=== PATIENT | female | born 1950 | race Caucasian/White ===

== ENCOUNTER 2018-08-28 11:15 | Outpatient (RCR) | payer MEDICARE, OTHER, SELFPAY ==
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
== END 2018-12-26 14:11 ==
LOC: PHYS 11:15
PROVIDERS: Family Provider Family Medicine; PCP Family Medicine; Referring Provider Obstetrics & Gynecology; Visit Provider Obstetrics & Gynecology
DX: N39.46 Mixed incontinence (principal)
CPT/HCPCS: 97035; 97110; 97140; 97161

== ENCOUNTER 2018-12-31 06:14 | Day surgery (SDC) | payer MEDICARE, OTHER, SELFPAY ==
[2018-12-17 14:45] VITALS: BMI 33.4
[2018-12-31] VITALS (8 sets, daily range): BP systolic 136–183; BP diastolic 51–86; PULSE 76–90; RESP 3–20; TEMP 35.9–36.8; O2SAT 11–97; BMI 33.4
[2018-12-31] MEDS: LACTATED RINGERS 1,000 ML 42 ML IV ×2 (07:25→08:56)
[2018-12-31] MEDS: CEFAZOLIN 2 GM/100 ML FROZ.PIGGY IV (08:08)
--- NOTE | 2018-12-31 08:28 | PM.PREOP ---
Pre-operative Note Interval Note History & Physical reviewed/Exam performed by Physician: Yes Changes to H&P: No
--- NOTE | 2018-12-31 08:29 | PM.HP.1 ---
History of Present Illness Date Patient Seen: 12/31/18 Time Patient Seen: 08:29 Chief complaint: TVT w/ cystoscopy; 21475 Narrative: Patient is a 68-year-old with stress urinary incontinence who is here for a TVT with cystoscopy Patient History Family & Social History Social History: household members spouse Tobacco & Substance use: Smoking Status Never smoker Meds Home Medications Medication Instructions Recorded Confirmed Type aspirin 81 mg tablet,delayed 81 mg PO DAILY 05/23/18 12/31/18 History release atorvastatin 40 mg tablet 40 mg PO DAILY 05/23/18 12/31/18 History nortriptyline 10 mg capsule 10 mg PO BEDTIME 05/23/18 12/31/18 History metformin ER 500 mg 500 mg PO BID #0 tab 10/30/18 12/31/18 History tablet,extended release 24hr losartan 50 mg tablet 50 mg PO DAILY 12/19/18 12/31/18 History Allergies Allergy/AdvReac Type Severity Reaction Status Date / Time Latex, Natural Rubber Allergy Unknown Verified 12/31/18 07:40 [LATEX, NATURAL RUBBER] metronidazole [METRONIDAZOLE] Allergy Unknown Verified 12/31/18 07:40 oxycodone [From PERCOCET] Allergy Unknown Verified 12/31/18 07:40 Penicillins [PENICILLINS] Allergy Unknown Verified 12/31/18 07:40 pregabalin [From LYRICA] Allergy Unknown Verified 12/31/18 07:40 pumpkin seeds Allergy Unknown Uncoded 12/31/18 07:40 Exam Vital Signs (past 8 hours): - 12/31/18 07:26 Temperature 96.7 F L Pulse Rate 83 Respiratory Rate 16 Blood Pressure 183/86 H Pulse Oximetry 97 Oxygen Delivery Method Room Air Narrative Exam Narrative: HEENT: No thyromegaly, no anterior cervical or supraclavicular lymphadenopathy. Lungs:Clear to auscultation bilaterally, no wheezes. Cardiovascular: Regular rate and rhythm, no murmurs, rubs, or gallops. Abdomen: Well-healed scars. No hepatosplenomegaly. No masses palpable. External genitalia: Normal Vagina: Normal Cervix: Normal Bimanual exam: 6 Week size uterus. Mobile. Rectal: No masses. Assessment & Plan (1) KELLEN (stress urinary incontinence, female): Current visit: Yes Status: Acute Plan: Assessment/Plan Narrative: Assessment: 68-year-old with stress urinary incontinence Plan: TVT with cystoscopy The risks, benefits, and alternatives to the procedure were explained to the patient. The risks including bleeding, infection, injury to the bladder, urethra or ureters. She understands these risks and agrees to proceed. A full PAR-Q was held and consent form was signed.
--- NOTE | 2018-12-31 08:32 | SUR.OPER ---
Lithotomy on padded OR bed, head on pillow, arms secured on padded arm boards at <90 degrees abduction. Legs secured in padded yellow fins stirrups.
[2018-12-31] MEDS: BUPIVACAINE 0.25% W/ EPI VIAL 50 ML INJ (08:49)
[2018-12-31] MEDS: INSULIN REGULAR 100 UNIT/ML 3 ML VIAL SUBCUT (09:44)
--- NOTE | 2018-12-31 09:59 | SUR.PHASEI ---
0952 late entry - O2 reduced to 2LNP. Resting comfortable, denies pain/nausea. VSS 0959 Remains stable, taking ice chips, tolerating well. Resp unlabored, skin warm and dry. Verbal responses appropriate.
--- NOTE | 2018-12-31 10:11 | SUR.PHASEI ---
1006 To OPD, report to Myke Leija RN. Dentures to OPD w/patient.
--- NOTE | 2018-12-31 15:36 | PM.GYNOP.1 ---
Operative Date/Time/Diagnoses Date of procedure: 12/31/18 Time of procedure: 09:30 Pre-op diagnosis: Stress urinary incontinence Increased urethrovesical angle on Valsalva Post-op diagnosis: same Procedure: Procedures Operation Date: 12/31/18 07:45 Actual Procedures Side Surgeon p Tensionless Vaginal Tape w/cystoscopy Alicia Nova MD Indications: Stress Urinary incontinence Increased urethrovesical angle with Valsalva Surgeon: Aliica Nova Manager Portable: Scottie Villavicencio Anesthesia Type: General Operative Notes Findings: Increased urethrovesical angle on Valsalva No injury to the bladder Closure Type: not applicable Specimen(s): none Applied: catheter Estimated blood loss (mL): 10 Blood products transfused: none Procedure in detail: The patient was taken to the operating room where she was placed in the dorsal supine position. After adequate general endotracheal anesthesia was achieved, she was placed in the dorsal lithotomy position, and prepped and draped in the usual sterile fashion. A time-out was performed. 50 cc 0.5% Marcaine with epinephrine were diluted with 50 cc of sterile water. With the patient placed with her thighs parallel to the floor, using an 18 gauge spinal needle, 100 cc of a dilute local was injected behind the pubic symphysis into the space of Retzius. The midline was marked as well as 2 cm lateral to the midline on each side with a marking pen. Attention was then turned to the vagina where a weighted speculum was placed into the vagina. Allis clamps were placed lateral to the midline on the mucosa of the anterior abdominal wall approximately 1 1/2 cm away from the urethral meatus. 5 cc of 0.25% Marcaine with epinephrine were injected submucosally. A 1 cm incision was made in the midline. This was dissected out laterally with the Metzenbaum scissors. The bladder was emptied and a latex-free rigid catheter was placed into the bladder and the balloon was filled with 5 cc of air. With the bladder neck retracted away from the patient's right side 10 cc 0.25% Marcaine with epinephrine was injected along the projected path of the TVT. This was repeated on the patient's left side with the bladder neck retracted away from the patient's left side. The path of the TVT was slightly dissected using the Hegar dilator up to the # 6. This was repeated on the patient's right side with the bladder neck retracted away from the patient's right side. A hemostat was placed in the midline on the overlapping plastic sheath. The TVT was directed towards the patient's right shoulder with the bladder neck retracted away from the patient's right side. After perforating the urogenital diaphragm the TVT was brought up behind the pubic symphysis and out on the right side of the midline approximately 2 cm away from the midline. Using the # 15 blade, a 3 mm incision was made and the TVT introducer was brought up through the skin and grasped with a Ruddy. All of this was repeated on the patient's left side with the bladder neck retracted away from the patient's left side. The rigid portion of the catheter was removed from the bladder. The bladder was filled with 240 cc of sterile water. A cystoscopy was performed and a bubble was seen at the dome of the bladder. The TVT was not in the bladder at any site. Cystoscope was removed from the bladder. The TVT was pulled to within 2-3 mm of the urethral meatus. The patient was made to cough and there was no leakage of urine. The hemostat was removed from the midline of the overlapping plastic sheath on the TVT. Without creating any more tension on the TVT, the plastic sheath was removed. The TVT was cut below the level of the skin. The vaginal mucosa was closed with 3 O Vicryl in a running interlocking fashion. Surgical glue was used on the suprapubic incisions. There was no bleeding noted vaginally. A catheter was placed in approximately 100 cc of the sterile water was removed from the bladder. Sponge, lap, and instrument counts were correct x2. The patient tolerated the procedure well, and was taken to PACU in stable condition. Complications: none Post-operative Condition: stable Disposition: PACU Plan for aftercare: Home after recovery
== END 2018-12-31 10:55 | disposition home or self-care (01) ==
PROVIDERS: Family Provider Family Medicine; PCP Family Medicine; Visit Provider Obstetrics & Gynecology
PROC: 0TSD0ZZ Reposition Urethra, Open Approach (ICD-10-PCS; CPT 57288; principal; 2018-12-31 07:45)
DX: N39.3 Stress incontinence (female) (male) (principal); G47.33 Obstructive sleep apnea (adult) (pediatric); E11.9 Type 2 diabetes mellitus without complications; Z79.84 Long term (current) use of oral hypoglycemic drugs
CPT/HCPCS: 57288; C1771; J0330; J0690; J1100; J1885; J2704

== ENCOUNTER 2019-01-01 11:47 | Emergency (ER) | payer MEDICARE, OTHER, SELFPAY ==
[2019-01-01 11:50] VITALS: BP 188/74; PULSE 80; RESP 14; TEMP 36.5; O2SAT 98
--- NOTE | 2019-01-01 12:05 | ED.CHESTPAIN ---
HPI - Chest Pain <Aleyda Pedroza PA-C - Last Filed: 01/01/19 20:08> General Chief Complaint: Chest Pain Stated Complaint: CHEST SOB Time Seen by Provider: 01/01/19 12:03 Source: patient Mode of arrival: ambulatory Limitations: no limitations History of Present Illness HPI narrative: This 68-year-old female comes to ED today secondary to chest pain that started this morning. She states it has been present consistently since early this morning, feels it mainly when she breathes in but also hurts with trying to get up and out of a chair. She states that she does not have the pain when she exhales. She does not feel short of breath. She has not had fever, any recent cough or upper respiratory symptoms. She does not have any nausea or vomiting. She does not have dizziness or palpitations. She does not have any new pain or swelling in her extremities. She did have a bladder suspension yesterday and states that she has some soreness from that, and also was told after intubation that she would have some sore throat and pain in her shoulder which has been unchanged since surgery. She states that she also feels the pain in the middle of her back. Pain stays in the midline, does not radiate into extremities or neck. She does not have any history of blood clots. Related Data Home Medications Medication Instructions Recorded Confirmed aspirin 81 mg tablet,delayed 81 mg PO DAILY 05/23/18 01/01/19 release atorvastatin 40 mg tablet 40 mg PO DAILY 05/23/18 01/01/19 losartan 50 mg tablet 50 mg PO DAILY 12/19/18 01/01/19 metformin 500 mg PO BID 01/01/19 01/01/19 sennosides-docusate sodium 1 tab PO BID 01/01/19 01/01/19 [Senna-S] Previous Rx's Medication Instructions Recorded tramadol 50 mg PO Q4-6H PRN #10 tab 01/01/19 Allergies Allergy/AdvReac Type Severity Reaction Status Date / Time Latex, Natural Rubber Allergy Unknown Verified 12/31/18 07:40 [LATEX, NATURAL RUBBER] metronidazole [METRONIDAZOLE] Allergy Unknown Verified 12/31/18 07:40 oxycodone [From PERCOCET] Allergy Unknown Verified 12/31/18 07:40 Penicillins [PENICILLINS] Allergy Unknown Verified 12/31/18 07:40 pregabalin [From LYRICA] Allergy Unknown Verified 12/31/18 07:40 pumpkin seeds Allergy Unknown Uncoded 12/31/18 07:40 Review of Systems <Aleyda Pedroza PA-C - Last Filed: 01/01/19 20:08> Review of Systems ROS Unobtainable: All systems reviewed & are unremarkable except as noted in HPI and below PFSH <Aleyda Pedroza PA-C - Last Filed: 01/01/19 20:08> Medical History Diabetes (Acute) GERD (gastroesophageal reflux disease) (Acute) HTN (hypertension) (Acute) Hyperlipidemia (Acute) Kidney stone on right side (Acute) Overactive bladder (Acute) H/O: hysterectomy (Resolved) Surgical History Hx of cholecystectomy (Acute) History of bladder suspension procedure (Resolved) History of partial knee replacement (Resolved) S/P cholecystectomy (Resolved) Status post hysterectomy (Resolved) Status post surgery (Resolved) Family History Other Family history non-contributory Social History household members: spouse Smoking Status: Never smoker Social History household members: spouse Smoking Status: Never smoker Exam <Aleyda Pedroza PA-C - Last Filed: 01/01/19 20:08> Narrative Exam Narrative: GENERAL APPEARANCE: Patient sitting comfortably, in no distress. NECK/THYROID: Neck supple, no JVD. LUNGS: soft generalized expiratory rhonchi, lungs clear with inspiration CHEST: Midsternal tenderness to palpation HEART: Regular rate and rhythm without murmur, normal S1, S2, no S3 or S4. ABDOMEN: Soft, NT, ND, + BS x 4 quadrants EXTREMITIES: No cyanosis or edema. No calf tenderness NEUROLOGIC: Alert and oriented, normal speech, and coordination. DERMATOLOGIC: No exanthem MUSCULOSKELETAL: No thoracic or lumbar tenderness to palpation Initial Vital Signs Initial Vital Signs: Vital Signs Temperature 97.7 F 01/01/19 11:50 Pulse Rate 80 01/01/19 11:50 Respiratory Rate 14 01/01/19 11:50 Blood Pressure 188/74 H 01/01/19 11:50 Pulse Oximetry 98 01/01/19 11:50 <John Sutton DO - Last Filed: 01/08/19 07:37> Initial Vital Signs Initial Vital Signs: Vital Signs Temperature 97.7 F 01/01/19 11:50 Pulse Rate 80 01/01/19 11:50 Respiratory Rate 14 01/01/19 11:50 Blood Pressure 188/74 H 01/01/19 11:50 Pulse Oximetry 98 01/01/19 11:50 Scores <Aleyda Pedroza PA-C - Last Filed: 01/01/19 20:08> PERC Score Age greater than or equal to 50 years: Yes Heart rate greater than or equal to 100 bpm: No Room Air O2 Sat less than 95%: Yes Unilateral leg swelling: No Recent trauma or surgery: Yes Hemoptysis: No Prior PE or DVT: No Hormone Use: No Total PERC Score: 3 Course <NIELS Hogan Last Filed: 01/01/19 20:08> Additional Information: The patient is feeling significantly improved after tramadol/acetaminophen combination, which she stated she had taken previously but stopped due to use of nortriptyline. She states that she does not need the nortriptyline daily. She can only take the hydrocodone 1/2 tab at a time due to GI side effects. She will change to tramadol, continue pillow hugging technique every few hours, which also helped considerably. Given incentive spirometer and training by RT. Follow up with her PCP is scheduled tomorrow. Reviewed elevated white count but no clear evidence of infection and this may just be due to her postoperative state, but does need follow-up. Orders Ordered: Discontinued Medications Acetaminophen (Tylenol) 650 mg PO NOW ONE Stop: 01/01/19 12:21 Last Admin: 01/01/19 12:32 Dose: 650 mg Albuterol (Ventolin) 2.5 mg INH NOW ONE Stop: 01/01/19 13:02 Last Admin: 01/01/19 13:17 Dose: 2.5 mg Sodium Chloride (Normal Saline 0.9%) 1,000 mls @ 1,000 mls/hr IV BOLUS ONE Stop: 01/01/19 13:19 Last Infusion: 01/01/19 13:47 Dose: 0 mls/hr Admin: 01/01/19 12:32 Dose: 1,000 mls/hr Tramadol HCl (Ultram) 50 mg PO NOW ONE Stop: 01/01/19 12:21 Last Admin: 01/01/19 12:32 Dose: 50 mg Vital Signs - 8 hr 01/01/19 13:33 01/01/19 14:11 Pulse Rate 84 72 Respiratory Rate 19 Blood Pressure [Left Arm] 178/82 H Pulse Oximetry 98 93 <John Sutton DO - Last Filed: 01/08/19 07:37> Orders Ordered: Discontinued Medications Acetaminophen (Tylenol) 650 mg PO NOW ONE Stop: 01/01/19 12:21 Last Admin: 01/01/19 12:32 Dose: 650 mg Albuterol (Ventolin) 2.5 mg INH NOW ONE Stop: 01/01/19 13:02 Last Admin: 01/01/19 13:17 Dose: 2.5 mg Sodium Chloride (Normal Saline 0.9%) 1,000 mls @ 1,000 mls/hr IV BOLUS ONE Stop: 01/01/19 13:19 Last Infusion: 01/01/19 13:47 Dose: 0 mls/hr Admin: 01/01/19 12:32 Dose: 1,000 mls/hr Tramadol HCl (Ultram) 50 mg PO NOW ONE Stop: 01/01/19 12:21 Last Admin: 01/01/19 12:32 Dose: 50 mg Vital Signs - 8 hr 01/01/19 13:33 01/01/19 14:11 Pulse Rate 84 72 Respiratory Rate 19 Blood Pressure [Left Arm] 178/82 H Pulse Oximetry 98 93 MDM - Chest Pain <Aleyda Pedroza PA-C - Last Filed: 01/01/19 20:08> Lab Data Attestation: I reviewed the patient's lab results. Result diagrams: 01/01/19 12:05 01/01/19 12:05 Lab Results 01/01/19 01/01/19 01/01/19 Range/Units 11:47 12:05 12:05 WBC 19.3 H (4.5-11.0) X10^3/uL RBC 4.50 (4.0-5.2) X10^6/uL Hgb 12.6 (12.0-16.0) g/dL Hct 38.1 (36-46) % MCV 84.7 (80-100) fL MCH 28.1 (26-34) PG MCHC 33.2 (30-36) % RDW 14.0 (11.6-14.8) % Plt Count 410 H (150-400) X10^3/uL Neut % (Auto) 74.1 (50-75) % Lymph % (Auto) 19.6 L (25-40) % Bland % (Auto) 4.7 (3-14) % Eos % (Auto) 0.9 L (2-4) % Baso % (Auto) 0.7 (0-2) % Neut # (Auto) 05157 H (0762-7845) /uL Lymph # (Auto) 3800 (4017-5025) /uL Bland # (Auto) 900 (0-900) /uL Eos # (Auto) 200 (0-450) /uL Baso # (Auto) 100 (0-100) /uL D-Dimer 274 H (<230) ng/mL Sodium (137-145) mmol/L Potassium (3.4-5.1) mmol/L Chloride (98-107) mmol/L Carbon Dioxide (22-32) mmol/L BUN (7-17) mg/dL Creatinine (0.52-1.04) mg/dL Estimated GFR (>60) mL/min BUN/Creatinine Ratio (6-22) Glucose (80-110) mg/dL Calcium (8.4-10.2) mg/dL Total Bilirubin (0.2-1.3) mg/dL AST (14-36) IU/L ALT (9-52) IU/L Alkaline Phosphatase (38-126) U/L Total Creatine Kinase (30-135) U/L CK-MB (CK-2) CK-MB (CK-2) Rel Index Troponin I (0.01-0.034) ng/mL B-Natriuretic Peptide 142 H (<100) Total Protein (6.3-8.2) g/dL Albumin (3.5-5.0) g/dL Globulin (1.7-4.1) g/dL Albumin/Globulin Ratio (1.0-2.8) Lipase (23-300) U/L 02/05/19 Range/Units 12:05 WBC (4.5-11.0) X10^3/uL RBC (4.0-5.2) X10^6/uL Hgb (12.0-16.0) g/dL Hct (36-46) % MCV (80-100) fL MCH (26-34) PG MCHC (30-36) % RDW (11.6-14.8) % Plt Count (150-400) X10^3/uL Neut % (Auto) (50-75) % Lymph % (Auto) (25-40) % Bland % (Auto) (3-14) % Eos % (Auto) (2-4) % Baso % (Auto) (0-2) % Neut # (Auto) (1879-4774) /uL Lymph # (Auto) (4945-7051) /uL Bland # (Auto) (0-900) /uL Eos # (Auto) (0-450) /uL Baso # (Auto) (0-100) /uL D-Dimer (<230) ng/mL Sodium 140 (137-145) mmol/L Potassium 3.3 L (3.4-5.1) mmol/L Chloride 104 (98-107) mmol/L Carbon Dioxide 27 (22-32) mmol/L BUN 17 (7-17) mg/dL Creatinine 0.70 (0.52-1.04) mg/dL Estimated GFR > 60.0 (>60) mL/min BUN/Creatinine Ratio 24.3 H (6-22) Glucose 157 H (80-110) mg/dL Calcium 9.6 (8.4-10.2) mg/dL Total Bilirubin 0.3 (0.2-1.3) mg/dL AST 18 (14-36) IU/L ALT 22 (9-52) IU/L Alkaline Phosphatase 101 (38-126) U/L Total Creatine Kinase 38 (30-135) U/L CK-MB (CK-2) TNP CK-MB (CK-2) Rel Index TNP Troponin I < 0.012 (0.01-0.034) ng/mL B-Natriuretic Peptide (<100) Total Protein 7.6 (6.3-8.2) g/dL Albumin 4.2 (3.5-5.0) g/dL Globulin 3.4 (1.7-4.1) g/dL Albumin/Globulin Ratio 1.2 (1.0-2.8) Lipase 93 (23-300) U/L ECG Data Attestation: I personally reviewed and interpreted this ECG as follows: (NSR,rate 80, nl axis, BB pattern) Prior ECG tracings: not available for review <John Sutton DO - Last Filed: 01/08/19 07:37> Lab Data Lab Results 01/01/19 01/01/19 01/01/19 Range/Units 11:47 12:05 12:05 WBC 19.3 H (4.5-11.0) X10^3/uL RBC 4.50 (4.0-5.2) X10^6/uL Hgb 12.6 (12.0-16.0) g/dL Hct 38.1 (36-46) % MCV 84.7 (80-100) fL MCH 28.1 (26-34) PG MCHC 33.2 (30-36) % RDW 14.0 (11.6-14.8) % Plt Count 410 H (150-400) X10^3/uL Neut % (Auto) 74.1 (50-75) % Lymph % (Auto) 19.6 L (25-40) % Bland % (Auto) 4.7 (3-14) % Eos % (Auto) 0.9 L (2-4) % Baso % (Auto) 0.7 (0-2) % Neut # (Auto) 13837 H (6699-9163) /uL Lymph # (Auto) 3800 (9601-4054) /uL Bland # (Auto) 900 (0-900) /uL Eos # (Auto) 200 (0-450) /uL Baso # (Auto) 100 (0-100) /uL D-Dimer 274 H (<230) ng/mL Sodium (137-145) mmol/L Potassium (3.4-5.1) mmol/L Chloride (98-107) mmol/L Carbon Dioxide (22-32) mmol/L BUN (7-17) mg/dL Creatinine (0.52-1.04) mg/dL Estimated GFR (>60) mL/min BUN/Creatinine Ratio (6-22) Glucose (80-110) mg/dL Calcium (8.4-10.2) mg/dL Total Bilirubin (0.2-1.3) mg/dL AST (14-36) IU/L ALT (9-52) IU/L Alkaline Phosphatase (38-126) U/L Total Creatine Kinase (30-135) U/L CK-MB (CK-2) CK-MB (CK-2) Rel Index Troponin I (0.01-0.034) ng/mL B-Natriuretic Peptide 142 H (<100) Total Protein (6.3-8.2) g/dL Albumin (3.5-5.0) g/dL Globulin (1.7-4.1) g/dL Albumin/Globulin Ratio (1.0-2.8) Lipase (23-300) U/L 01/01/ Range/Units 12:05 WBC (4.5-11.0) X10^3/uL RBC (4.0-5.2) X10^6/uL Hgb (12.0-16.0) g/dL Hct (36-46) % MCV (80-100) fL MCH (26-34) PG MCHC (30-36) % RDW (11.6-14.8) % Plt Count (150-400) X10^3/uL Neut % (Auto) (50-75) % Lymph % (Auto) (25-40) % Bland % (Auto) (3-14) % Eos % (Auto) (2-4) % Baso % (Auto) (0-2) % Neut # (Auto) (5409-9348) /uL Lymph # (Auto) (2330-3095) /uL Bland # (Auto) (0-900) /uL Eos # (Auto) (0-450) /uL Baso # (Auto) (0-100) /uL D-Dimer (<230) ng/mL Sodium 140 (137-145) mmol/L Potassium 3.3 L (3.4-5.1) mmol/L Chloride 104 (98-107) mmol/L Carbon Dioxide 27 (22-32) mmol/L BUN 17 (7-17) mg/dL Creatinine 0.70 (0.52-1.04) mg/dL Estimated GFR > 60.0 (>60) mL/min BUN/Creatinine Ratio 24.3 H (6-22) Glucose 157 H (80-110) mg/dL Calcium 9.6 (8.4-10.2) mg/dL Total Bilirubin 0.3 (0.2-1.3) mg/dL AST 18 (14-36) IU/L ALT 22 (9-52) IU/L Alkaline Phosphatase 101 (38-126) U/L Total Creatine Kinase 38 (30-135) U/L CK-MB (CK-2) TNP CK-MB (CK-2) Rel Index TNP Troponin I < 0.012 (0.01-0.034) ng/mL B-Natriuretic Peptide (<100) Total Protein 7.6 (6.3-8.2) g/dL Albumin 4.2 (3.5-5.0) g/dL Globulin 3.4 (1.7-4.1) g/dL Albumin/Globulin Ratio 1.2 (1.0-2.8) Lipase 93 (23-300) U/L Discharge Plan Departure Patient Disposition: Home Clinical Impression: Pleuritic chest pain, Chest wall pain following surgery Discharge Date/Time: 01/01/19 14:36 Interventions: ED Discharge Assessment Last Done: 01/01/19 14:36 Instructions: DI for Pleurisy Activity Restrictions/Additional Instructions: your pain today seems to be mainly with pressure on the chest wall area and with breathing in. Since this started after surgery it may be musculoskeletal/due to positioning. There were no acute findings on your heart or blood clot tests today. Since the tramadol /Tylenol combination seemed to help you more than the hydrocodone without causing nausea, I have prescribed some tramadol for you to change to. Please take that every 4-6 hours as needed for your pain. Please do the pillow hugging technique we talked about every few hours and take some deep breaths to help keep your lungs inflated and avoid infection and complications. Use the incentive spirometer that the respiratory therapist gave you. the radiologist noted that you might have a nodule on the right side of your thyroid, which is a common diagnosis. They said this also could be artifact. When you are better and recovered from surgery, you can discuss with Dr. Haile whether you want to do an ultrasound for this. You did have an elevated white cell count today which can be related to infection or inflammation, i.e. postoperative status, so we have scheduled you for a follow-up with your primary care office tomorrow at 11:[address] Frye for recheck. you should return to the ED if you have any acutely worsening symptoms or new changes in the interim. Prescriptions: New tramadol 50 mg tablet 50 mg PO Q4-6H PRN (Reason: postoperative pain/chest wall pain) Qty: 10 RF: 0 Discontinued hydrocodone-acetaminophen [Carbon] 5-325 mg tablet 1 tab PO Q4-6H PRN (Reason: post op pain ) Qty: 14 RF: 0 amitriptyline 10 mg tablet 10 mg PO BEDTIME RF: 0 nortriptyline 10 mg capsule 10 mg PO BEDTIME RF: 0 No Action losartan 50 mg tablet 50 mg PO DAILY RF: 0 aspirin [Adult Aspirin Regimen] 81 mg tablet,delayed release (DR/EC) 81 mg PO DAILY RF: 0 atorvastatin 40 mg tablet 40 mg PO DAILY RF: 0 metformin 500 mg tablet 500 mg PO BID RF: 0 sennosides-docusate sodium [Senna-S] 8.6-50 mg tablet 1 tab PO BID RF: 0 Referrals: Cleveland Otto MD [Primary Care Provider] - <John Sutton DO - Last Filed: 01/08/19 07:37> [facility] ED Attending Seb Attestation: I was immediately available in the department for consultation. Documentation has been reviewed. I agree with assessment and plan.
--- NOTE | 2019-01-01 12:08 | DI.RAD.S_ITS ---
PROCEDURE: XR CHEST 1V INDICATIONS: chest pain TECHNIQUE: One view of the chest was acquired. COMPARISON: None. FINDINGS: Surgical changes and devices: None. Lungs and pleura: An incomplete inspiratory result is noted, causing a crowded appearance to the lung markings. No focal infiltrates are seen. Mild interstitial prominence is seen. No pneumothorax or significant pleural effusions are seen. Mediastinum: Mediastinal contours appear normal. Heart size is normal. Bones and chest wall: No suspicious bony lesions. Age-appropriate bony degenerative changes are seen. Overlying soft tissues appear unremarkable. IMPRESSION: Interstitial prominence is seen throughout. The interstitial prominence is nonspecific, yet may be related to pulmonary edema. Differential diagnosis includes artifact from an incomplete inspiratory result. Dictated by: Tung Pressley M.D. on 01/01/2019 at 11:37 Approved by: Tung Pressley M.D. on 01/01/2019 at 11:38
[2019-01-01 12:14] LABS: Add Manual Diff / Slide Review NO; Basophils Absolute Auto 100 /uL (0-100); Basophils Percent Auto 0.7 % (0-2); Eosinophils Absolute Auto 200 /uL (0-450); Eosinophils Percent Auto 0.9 % (2-4); Hematocrit 38.1 % (36-46); Hemoglobin 12.6 g/dL (12.0-16.0); Lymphocytes Absolute Auto 3800 /uL (1100-4500); Lymphocytes Percent Auto 19.6 % (25-40); Mean Corpuscular HGB Conc 33.2 % (30-36); Mean Corpuscular Hemoglobin 28.1 PG (26-34); Mean Corpuscular Volume 84.7 fL (80-100); Monocytes Absolute Auto 900 /uL (0-900); Monocytes Percent Auto 4.7 % (3-14); Neutrophils Absolute Auto 14300 /uL (1500-7000); Neutrophils Percent Auto 74.1 % (50-75); Platelet Count 410 X10^3/uL (150-400); White Blood Cell Count 19.3 X10^3/uL (4.5-11.0)
[2019-01-01 12:22] LABS: D Dimer 274 ng/mL (<230)
[2019-01-01 12:23] LABS: Alanine Aminotransferase 22 IU/L (9-52); Albumin 4.2 g/dL (3.5-5.0); Albumin Globulin Ratio 1.2 (1.0-2.8); Alkaline Phosphatase 101 U/L (38-126); Aspartate Aminotransferase 18 IU/L (14-36); BUN Creatinine Ratio 24.3 (6-22); Bilirubin Total 0.3 mg/dL (0.2-1.3); Blood Urea Nitrogen 17 mg/dL (7-17); Calcium 9.6 mg/dL (8.4-10.2); Carbon Dioxide 27 mmol/L (22-32); Chloride 104 mmol/L (98-107); Creatine Kinase 38 U/L (30-135); Estimated Glomerular Filt Rate > 60.0 mL/min (>60); Globulin 3.4 g/dL (1.7-4.1); Glucose 157 mg/dL (80-110); HEMOLYSIS < 15 (0-50); Lipase 93 U/L (23-300); Potassium 3.3 mmol/L (3.4-5.1); Sodium 140 mmol/L (137-145); Total Protein 7.6 g/dL (6.3-8.2)
--- NOTE | 2019-01-01 12:24 | DI.CT.S_ITS ---
PROCEDURE: CT ANGIO CHEST PE PROTOCOL INDICATIONS: pleuritic pain 1d post op TECHNIQUE: After the administration of intravenous contrast, 2 mm thick sections acquired from the pulmonary apices to the posterior costophrenic angles. 3-dimensional maximum intensity projection (MIP) coronal and sagittal reformats were then acquired through the thorax. For radiation dose reduction, the following was used: automated exposure control, adjustment of mA and/or kV according to patient size. COMPARISON: [facility], CR, XR CHEST 1V, 01/01/2019, 12:23. [facility], CT, KIDNEY/ URETER/BLADDER, 01/03/2017, 12:46. FINDINGS: Image quality: Excellent. Pulmonary arteries: Pulmonary arteries are normal in size, and demonstrate no intraluminal filling defects to suggest central pulmonary embolism. Lungs and pleura: Mild dependent atelectasis can be seen. Low lung volumes are noted. This causes a crowded appearance to the lung markings and limits evaluation. No pleural effusions or pneumothorax. Central and peripheral airways are patent. Mediastinum: Heart size is mildly enlarged, without pericardial effusion. No mediastinal or hilar adenopathy. Thoracic aorta is normal in caliber and enhancement. To the limits of this study, no findings of aortic aneurysm or dissection can be seen. Esophagus is normal in caliber. There is a small hiatal hernia. Bones and chest wall: No suspicious bony lesions. Ribs and thoracic spine appear intact throughout. There is an apparent nodule on the right side, as on series 5 image 16 measuring 2.7 cm. No axillary or supraclavicular adenopathy. Abdomen: Incidental note is made of an accessory spleen along the hilum of the primary spleen. Visualized upper abdominal solid organs appear normal in the early arterial phase of enhancement. IMPRESSION: Negative for pulmonary embolism. Mild cardiomegaly. Potential right thyroid nodule, although differential diagnosis includes artifact. If clinically appropriate, please consider a dedicated thyroid ultrasound for further evaluation. Incidental note is made of: Small hiatal hernia Accessory spleen Dictated by: Tung Pressley M.D. on 01/01/2019 at 11:49 Approved by: Tung Pressley M.D. on 01/01/2019 at 11:53
[2019-01-01] MEDS: ACETAMINOPHEN 325 MG TABLET 650 MG PO (12:32)
[2019-01-01] MEDS: SODIUM CHLORIDE 0.9% 1,000 ML 1000 ML IV (12:32)
[2019-01-01] MEDS: TRAMADOL 50 MG TABLET PO (12:32)
[2019-01-01 12:35] LABS: Troponin I < 0.012 ng/mL (0.01-0.034)
[2019-01-01] MEDS: ALBUTEROL 2.5 MG/3 ML NEB (ADULT) INH (13:17)
[2019-01-01 13:33] VITALS: PULSE 84; O2SAT 98
[2019-01-01 13:37] LABS: B Type Natriuretic Peptide 142 (<100)
[2019-01-01 14:11] VITALS: BP 178/82; PULSE 72; RESP 19; O2SAT 93
== END 2019-01-01 14:36 | disposition home or self-care (01) ==
PROVIDERS: Emergency Provider Internal Medicine; Family Provider Family Medicine; PCP Family Medicine
DX: R07.81 Pleurodynia (principal); G89.18 Other acute postprocedural pain
CPT/HCPCS: 36591; 71045; 71275; 80053; 82550; 83690; 83880; 84484; 85025; 85379; 93005; 94640; 96360; 99283; 99285; J7613; Q9967

== ENCOUNTER → 2019-10-10 15:18 | Outpatient (CLI) | payer MEDICARE, OTHER, SELFPAY | PROVIDERS: Family Provider Family Medicine; PCP Family Medicine; Visit Provider Obstetrics & Gynecology | DX: N39.0 Urinary tract infection, site not specified (principal); N39.3 Stress incontinence (female) (male) | CPT/HCPCS: 87086 ==

== ENCOUNTER → 2019-12-31 10:40 | Outpatient (CLI) | payer MEDICARE, OTHER, SELFPAY ==
--- NOTE | 2019-12-31 | DI.US.S_ITS ---
PROCEDURE: US RENAL COMPLETE INDICATIONS: Congenital multiple renal cysts TECHNIQUE: Real-time scanning was performed of the kidneys and bladder, with image documentation. COMPARISON: Outside Film, CT, CT ABDOMEN PELVIS WITH CONTRAST, 11/05/2019, 6:59. FINDINGS: Kidneys: Kidneys are normal in size. Right kidney measures 9.6 cm long; left kidney measures 11.3 cm long. Right renal cortical thickness is 1.8 cm; left renal cortical thickness is 2.1 cm. Renal cortical echotexture is normal. No hydronephrosis or nephrolithiasis. No suspicious solid mass lesions. Bladder: Pre-void bladder volume is 96 mL. Post-void residual could not be established due to the inability to selectively void. Pre-void images demonstrate no intraluminal masses or stones. Miscellaneous: No free pelvic fluid. IMPRESSION: No hydronephrosis or nephrolithiasis found. The mild right-sided hydronephrosis seen by CT scanning 11/05/19 has resolved. The bladder is not distended at initiation of the study. The patient could not void voluntarily and therefore post void residual cannot be established. Dictated by: Sanchez Ramos M.D. on 12/31/2019 at 14:38 Approved by: Sanchez Ramos M.D. on 12/31/2019 at 14:43
== END ==
PROVIDERS: Family Provider Family Medicine; PCP Family Medicine; Referring Provider Urology; Visit Provider Urology
DX: Q61.02 Congenital multiple renal cysts (principal)
CPT/HCPCS: 76770

== ENCOUNTER → 2020-05-28 08:40 | Outpatient (CLI) | payer MEDICARE, OTHER, SELFPAY ==
--- NOTE | 2020-05-28 | DI.MRI.S_ITS ---
PROCEDURE: MR LUMBAR SPINE WO CON INDICATIONS: Other spondylosis with radiculopathy, lumbar regio TECHNIQUE: Noncontrast sagittal T1 spin echo and T2 fast echo, sagittal STIR, axial T1 and T2 fast spin echo through the lumbar spine. In cases with scoliosis, additional coronal T2 fast spin echo may be performed. COMPARISON: None. FINDINGS: Image quality: Excellent. Alignment and Curvature: Grade 1 retrolisthesis of L1 on L2. Bone Marrow: Multilevel degenerative endplate sclerosis and spurring. Diffuse facet arthropathy. No acute vertebral body compression fractures. Scattered small Schmorl's nodes are also seen throughout the lumbar spine, with mild associated adjacent marrow edema at the inferior end plate of L2. Spinal Cord: Conus medullaris terminates at the L1 level. Visualized cord demonstrates normal signal and size. Paraspinous Soft Tissues: No paravertebral masses. Subcentimeter renal hypodensities, statistically cysts, although technically too small to characterize accurately and therefore nonspecific. L1-L2: Normal appearance. L2-L3: Minimal canal narrowing. Lateral recesses appear patent. No foraminal stenosis. L3-L4: No canal stenosis. Lateral recesses appear patent. Minimal left foraminal narrowing. No right foraminal stenosis L4-L5: Mild canal narrowing. Mild dorsal epidural lipomatosis. Partial effacement of both lateral recesses with bilaterally symmetric appearance. Moderate to severe left foraminal stenosis with slight nerve root compression. There is also mild right foraminal narrowing with slight nerve root compression. L5-S1: No canal stenosis. Lateral recess appear patent. No foraminal narrowing IMPRESSION: Mild L4-L5 canal narrowing Moderate to severe left and mild right L4-L5 foraminal stenoses as above Grade 1 retrolisthesis of L1 on L2. Dictated by: Teddy Wilder M.D. on 05/28/2020 at 10:16 Approved by: Teddy Wilder M.D. on 05/28/2020 at 10:23
== END ==
PROVIDERS: Family Provider Family Medicine; PCP Family Medicine; Referring Provider Neurological Surgery; Visit Provider Neurological Surgery
DX: M47.26 Other spondylosis with radiculopathy, lumbar region (principal); M48.061 Spinal stenosis, lumbar region without neurogenic claudication; M48.07 Spinal stenosis, lumbosacral region; M43.16 Spondylolisthesis, lumbar region
CPT/HCPCS: 72148

== ENCOUNTER → 2021-09-14 13:45 | Outpatient (CLI) | payer MEDICARE, OTHER, SELFPAY ==
--- NOTE | 2021-09-14 13:48 | DI.RAD.S_ITS ---
PROCEDURE: XR ABDOMEN 1V INDICATIONS: KIDNEY STONES TECHNIQUE: One view of the abdomen acquired. COMPARISON: Reference is made to the CT abdomen dated August 09, 2021. FINDINGS: Surgical changes and devices: Right upper quadrant surgical clips, compatible cholecystectomy. Additional surgical clips are seen in the right pelvic region. Hyperdense material projecting over the pubic symphysis, which may reflect prior intervention. Bowel: Nonspecific bowel gas pattern. Soft tissues: No suspicious abdominal calcifications. Visualized solid organ contours appear normal in size. Bones: No suspicious bony lesions. IMPRESSION: No suspicious abdominal calcifications. Dictated by: Nick Bansal M.D. on 09/14/2021 at 15:20 Approved by: Nick Bansal M.D. on 09/14/2021 at 15:23
== END ==
PROVIDERS: Family Provider Family Medicine; PCP Family Medicine; Referring Provider Urology; Visit Provider Urology
DX: N20.0 Calculus of kidney (principal)
CPT/HCPCS: 74018

== ENCOUNTER → 2022-02-22 11:53 | Outpatient (CLI) | payer MEDICARE, OTHER, SELFPAY ==
--- NOTE | 2022-02-22 12:13 | DI.RAD.S_ITS ---
PROCEDURE: XR CHEST 2V INDICATIONS: cough TECHNIQUE: 2 views of the chest were acquired. COMPARISON: [facility], CR, XR CHEST 1V, 01/01/2019, 12:23. FINDINGS: Surgical changes and devices: Cholecystectomy clips. Lungs and pleura: Lungs are clear. No pleural effusions or pneumothorax. Mediastinum: Mediastinal contours are normal. Heart size is normal. Bones and chest wall: No suspicious bony abnormalities. Soft tissues appear unremarkable. IMPRESSION: No acute cardiopulmonary disease process. Dictated by: Yaritza Gordon MD, PhD on 02/22/2022 at 14:54 Approved by: Yaritza Gordon MD, PhD on 02/22/2022 at 14:54
[2022-02-22 12:15] LABS: COVID19 -Nasal RAPID Negative (Negative)
== END ==
PROVIDERS: Family Provider Family Medicine; PCP Family Medicine; Referring Provider Nurse Practitioner Family; Visit Provider Nurse Practitioner Family
DX: Z20.822 Contact with and (suspected) exposure to COVID-19 (principal); R05.9 Cough, unspecified
CPT/HCPCS: 71046; 87635

== ENCOUNTER 2022-09-28 19:33 | Emergency (ER) | payer MEDICARE, OTHER, SELFPAY ==
[2022-09-28 19:41] VITALS: BP 208/86; PULSE 85; RESP 18; TEMP 36.6; O2SAT 98; BMI 32.2
--- NOTE | 2022-09-28 19:56 | DI.US.S_ITS ---
PROCEDURE: US ARTERIAL DUPLEX UE RT INDICATIONS: WRIST LUMP 1 DAY POST CARDIAC CATH PROCEDURE. Entry site at radial artery. TECHNIQUE: Color and pulse Doppler interrogation was performed of the right upper extremity arterial system in the area of clinical concern, with image documentation. COMPARISON: None. FINDINGS: Right upper extremity: The right radial artery and vein appear patent with normal waveforms. No discrete hematoma collection or pseudoaneurysm identified in the area of clinical concern. IMPRESSION: 1. No evidence of pseudoaneurysm or discrete hematoma in the area of clinical concern. 2. Visualized right radial artery appears patent with appropriate arterial waveforms. Dictated by: Jasper Jenkins M.D. on 09/28/2022 at 21:58 Approved by: Jasper Jenkins M.D. on 09/28/2022 at 22:01
--- NOTE | 2022-09-28 19:56 | ED.UPPEXIN ---
HPI - Extremity Injury (Upper) General Chief Complaint: Extremity Injury, Upper Stated Complaint: surgery site/pain/lump/swollen x1 day Time Seen by Provider: 09/28/22 19:47 Source: patient Mode of arrival: Ambulatory History of Present Illness HPI narrative: Patient is a 72-year-old female who presents with right wrist swelling. She had a heart catheterization through her right radial artery yesterday at [facility]. She noticed some small swelling and limp today no numbness tingling or weakness. She was told to come to the ER if she develops any symptoms. Related Data Home Medications Medication Instructions Recorded Confirmed aspirin 81 mg tablet,delayed 81 mg PO DAILY 05/23/18 10/10/19 release (Adult Aspirin Regimen) atorvastatin 40 mg tablet 40 mg PO DAILY 05/23/18 10/10/19 losartan 50 mg tablet 50 mg PO DAILY 12/19/18 10/10/19 metformin 500 mg tablet 500 mg PO BID 01/01/19 10/10/19 sennosides 8.6 mg-docusate sodium 1 tab PO BID 01/01/19 10/10/19 50 mg tablet Previous Rx's Medication Instructions Recorded oxybutynin chloride 5 mg 5 mg PO DAILY #90 tabs 10/29/19 tablet,extended release 24 hr benzonatate 100 mg capsule 100 mg PO BID PRN cough #20 caps 02/22/22 Allergies Allergy/AdvReac Type Severity Reaction Status Date / Time Latex, Natural Rubber Allergy Unknown Verified 10/10/19 14:42 [LATEX, NATURAL RUBBER] metronidazole [METRONIDAZOLE] Allergy Unknown Verified 10/10/19 14:42 oxycodone [From PERCOCET] Allergy Unknown Verified 10/10/19 14:42 Penicillins [PENICILLINS] Allergy Unknown Verified 10/10/19 14:42 pregabalin [From LYRICA] Allergy Unknown Verified 10/10/19 14:42 pumpkin seeds Allergy Unknown Uncoded 10/10/19 14:42 Review of Systems Review of Systems Narrative: GENERAL: Denies chills,fever HEENT: Denies throat pain RESPIRATORY: Denies dyspnea, cough, wheezing CARDIOVASCULAR: Denies chest pain, palpitations GASTROINTESTINAL: Denies nausea, vomiting MUSCULOSKELETAL: Denies extremity pain, injury SKIN: See HPI NEUROLOGIC: Denies weakness, dizziness, headache, numbness 8 point review of systems is negative except for those stated above and HPI Patient History Medical History Diabetes GERD (gastroesophageal reflux disease) HTN (hypertension) Hyperlipidemia Kidney stone on right side Overactive bladder Surgical History H/O: hysterectomy History of bladder suspension procedure History of partial knee replacement Hx of cholecystectomy S/P cholecystectomy Status post hysterectomy Status post surgery Status post surgery (12/31/18) Family History Other Family history non-contributory Social History household members: spouse Smoking Status: Never smoker Smoking Status: Never smoker alcohol intake frequency: 0-2 drinks per day Substance Use Type: does not use Exam Initial Vital Signs Initial Vital Signs: Vital Signs Temperature 97.9 F 09/28/22 19:41 Pulse Rate 85 09/28/22 19:41 Respiratory Rate 18 09/28/22 19:41 Blood Pressure 208/86 H 09/28/22 19:41 Pulse Oximetry 98 09/28/22 19:41 Oxygen Delivery Method 09/28/22 19:41 GENERAL: Pleasant alert 72-year-old female CARDIOVASCULAR: peripheral pulses in tact, cap refill <2 sec RESPIRATORY: No respiratory distress, speaks in full sentences without difficulty EXTREMITIES: Normal range of motion, no clubbing or edema. Neurovascularly intact Right wrist palpable radial pulse mild swelling moving all fingers NEUROLOGICAL: Cranial nerves II through XII grossly intact. Normal gait and speech. SKIN: Warm, dry, no petechiae, no rashes or lesions. Course Orders Ordered: ED Orders 09/28/22 19:56 US arterial duplex UE RT Stat Vital Signs Vital signs: Vital Signs - 8 hr 09/28/22 19:41 09/28/22 22:17 Temperature 97.9 F Pulse Rate 85 84 Respiratory Rate 18 16 Blood Pressure 208/86 H 184/77 H Pulse Oximetry 98 99 Oxygen Delivery Method Room Air Room Air MDM - Extremity Injury (Upper) Imaging Data US arterial: Radiologist's Impression: Ultrasound Report Signed Patient: Jocy Obregon MR#: [id number] : 1950 Acct:[id number] Age/Sex: 72 / F Date of Service: 09/28/22 Loc: ED Accession Number: [id number] ?? Procedure: US arterial duplex UE RT Ordering Provider: Aisha Davidson D.O. PROCEDURE:? US ARTERIAL DUPLEX UE RT ? INDICATIONS:? WRIST LUMP 1 DAY POST CARDIAC CATH PROCEDURE.? Entry site at radial artery. ? TECHNIQUE:? Color and pulse Doppler interrogation was performed of the right upper extremity arterial system in the area of clinical concern, with image documentation.? ? COMPARISON:? None. ? FINDINGS:? ? Right upper extremity:? The right radial artery and vein appear patent with normal waveforms. ? No discrete hematoma collection or pseudoaneurysm identified in the area of clinical concern. ? IMPRESSION:? ? 1. No evidence of pseudoaneurysm or discrete hematoma in the area of clinical concern. ? 2. Visualized right radial artery appears patent with appropriate arterial waveforms.? Dictated by: Jasper Jenkins M.D. on 09/28/2022 at 21:58 ? MDM Narrative Medical decision making narrative: Patient has some mild swelling after cardiac catheterization. Ultrasound does not show any evidence of complication or pseudoaneurysm. She has no sensory or motor loss. Small hematoma and swelling is after the procedure. Recommended to elevate and ice. Discharge Plan Departure Patient Disposition: Home Clinical Impression: Post-operative pain Instructions: DI for Postoperative Pain Activity Restrictions/Additional Instructions: *You have been diagnosed with postoperative pain *What to do: At this time there is no evidence of complication. Elevate and ice. *Continue to take medications as directed *Follow up with your primary care provider in 2-3 days or call [phone] *Return to ER if you should have increasing pain swelling chest pain shortness of or any new, worsening or concerning symptoms Prescriptions: No Action losartan 50 mg tablet 50 mg PO DAILY benzonatate 100 mg capsule 100 mg PO BID PRN (Reason: cough) Qty: 20 0RF oxybutynin chloride 5 mg tablet extended release 24hr 5 mg PO DAILY Qty: 90 1RF aspirin [Adult Aspirin Regimen] 81 mg tablet,delayed release (DR/EC) 81 mg PO DAILY atorvastatin 40 mg tablet 40 mg PO DAILY metformin 500 mg tablet 500 mg PO BID Label Comments: TK 1 T PO BID WITH MEALS sennosides-docusate sodium [Senna-S] 8.6-50 mg tablet 1 tab PO BID Label Comments: TK 1 T PO BID Referrals: Cleveland Otto MD [Primary Care Provider] - Visit Report Forms: Patient Portal/API
[2022-09-28 22:17] VITALS: BP 184/77; PULSE 84; RESP 16; O2SAT 99
== END 2022-09-28 22:18 | disposition home or self-care (01) ==
PROVIDERS: Emergency Provider Emergency Medicine; Family Provider Family Medicine; PCP Family Medicine
DX: G89.18 Other acute postprocedural pain (principal); M79.89 Other specified soft tissue disorders
CPT/HCPCS: 93931; 99283

== ENCOUNTER → 2022-12-22 08:39 | Outpatient (CLI) | payer MEDICARE, OTHER, SELFPAY ==
--- NOTE | 2022-12-22 | DI.MRI.S_ITS ---
PROCEDURE: MR SHOULDER RT WO CON INDICATIONS: Complete rotator cuff tear or rupture of right shoulder, not TECHNIQUE: Noncontrast oblique coronal T2 fast spin echo with fat saturation, oblique sagittal T1 spin echo and T2 fast spin echo with fat saturation, axial T1 spin echo and T2 fast spin echo with fat saturation through the shoulder. COMPARISON: None. FINDINGS: Image quality: Excellent. Rotator cuff: Low to moderate grade articular and bursal surface partial thickness tear involving distal supraspinatus at its insertion on the humeral head is seen extending to musculotendinous junction. Distal infraspinatus tendinosis and low-grade articular surface partial-thickness tear is also noted. Distal subscapularis tendon is intact. No full-thickness rotator cuff tendon rupture. Sagittal images demonstrate very mild supraspinatus muscle atrophy. Bones and bursae: No bone marrow contusions or fractures. Moderate acromioclavicular joint osteoarthritic changes are seen with joint space narrowing, subchondral sclerosis and downward osteophyte formation depressing on musculotendinous junction of supraspinatus. The acromion demonstrates conventional anatomy, without an os acromiale. Small amount of subacromial subdeltoid bursal fluid is seen. Capsule and soft tissues: There is signal abnormality and contour irregularity involving superior labrum extending from 11-1 o'clock position. The long head of the biceps tendon appears thickened with intrasubstance T2 hyperintense signal. The rotator interval appears normal, without fibrosis. The coracohumeral ligament is normal in thickness. IMPRESSION: 1. Low to moderate grade articular and bursal surface partial thickness tear involving distal supraspinatus extending to musculotendinous junction. Low-grade articular surface partial-thickness tear involving distal infraspinatus. No full-thickness rotator cuff tendon rupture. Very mild supraspinatus muscle atrophy. 2. No marrow edema. No acute fracture or dislocation. Moderate acromioclavicular joint osteoarthritis. Small amount of subacromial subdeltoid bursal fluid. 3. Suggestion of superior labral tear at 11 to 1 o'clock position. 4. Proximal intra-articular portion of long head of biceps tendinosis and low-grade intrasubstance partial-thickness tear. Dictated by: Wilman Eduardo M.D. on 12/22/2022 at 14:09 Approved by: Wilman Eduardo M.D. on 12/22/2022 at 14:12
== END ==
PROVIDERS: Family Provider Family Medicine; PCP Family Medicine; Referring Provider Orthopaedic Surgery; Visit Provider Orthopaedic Surgery
DX: M75.111 Incomplete rotator cuff tear or rupture of right shoulder, not specified as traumatic (principal); M19.011 Primary osteoarthritis, right shoulder; S46.111A Strain of muscle, fascia and tendon of long head of biceps, right arm, initial encounter
CPT/HCPCS: 73221

== ENCOUNTER 2023-02-16 05:51 | Day surgery (SDC) | payer MEDICARE, OTHER, SELFPAY ==
[2023-02-08 15:15] VITALS: BMI 35.2
[2023-02-16 06:51] VITALS: BP 167/73; PULSE 69; RESP 16; TEMP 36.4; O2SAT 98; BMI 31.2
[2023-02-16] MEDS: LACTATED RINGERS 1,000 ML 42 ML IV (07:14)
--- NOTE | 2023-02-16 07:31 | P.HP_ITS ---
History of Present Illness History of Present Illness Date Patient Seen: 02/16/23 Time Patient Seen: 07:32 Chief complaint: Right Shoulder Narrative: 72-year-old female with longstanding right shoulder pain that has been unresponsive to conservative treatment. Denies any particular injuries or accidents. Over time has just noticed more pain involving the right shoulder which has been having a significant impact on her everyday activities. Patient History Medical History Diabetes GERD (gastroesophageal reflux disease) HTN (hypertension) Hyperlipidemia Kidney stone on right side Overactive bladder Surgical History H/O: hysterectomy History of bladder suspension procedure History of partial knee replacement Hx of cholecystectomy Hx of LASIK Hx of tonsillectomy Hx of tubal ligation S/P cholecystectomy Status post hysterectomy Status post surgery Status post surgery (12/31/18) Family & Social History Family History Other Family history non-contributory Social History: household members spouse Tobacco & Substance use: Smoking Status Never smoker alcohol intake former alcohol intake frequency 0-2 drinks per day Substance Use Type does not use Meds Home Medications and Allergies Home Medications Medication Instructions Recorded Confirmed Type aspirin 81 mg tablet,delayed 81 mg PO DAILY 05/23/18 02/16/23 History release (Adult Aspirin Regimen) atorvastatin 40 mg tablet 40 mg PO DAILY 05/23/18 02/16/23 History losartan 50 mg tablet 50 mg PO DAILY 12/19/18 02/16/23 History metformin 500 mg tablet 500 mg PO BID 01/01/19 02/16/23 History sennosides 8.6 mg-docusate sodium 1 tab PO BID 01/01/19 02/16/23 History 50 mg tablet oxybutynin chloride 5 mg 5 mg PO DAILY #90 tabs 10/29/19 02/16/23 Rx tablet,extended release 24 hr benzonatate 100 mg capsule 100 mg PO BID PRN cough #20 caps 02/22/22 02/22/22 Rx Allergies Allergy/AdvReac Type Severity Reaction Status Date / Time Latex, Natural Rubber Allergy Severe Blister Verified 02/16/23 06:41 [LATEX, NATURAL RUBBER] Penicillins [PENICILLINS] Allergy Intermediate Verified 02/16/23 06:41 metronidazole [METRONIDAZOLE] Allergy Unknown Verified 02/16/23 06:41 pregabalin [From LYRICA] Allergy Unknown Verified 02/16/23 06:41 pumpkin seeds Allergy Intermediate Rash Uncoded 02/16/23 06:41 Exam Vital Signs (past 8 hours): - 02/16/23 06:51 Temperature 97.6 F Pulse Rate 69 Respiratory Rate 16 Blood Pressure 167/73 H Pulse Oximetry 98 Oxygen Delivery Method Room Air Oxygen Delivery Method Room Air Narrative Exam Narrative: On physical exam no swelling or deformities to the shoulder. Patient has a painful arc range of motion and difficulty with full range of motion but can be passively fully ranged. Positive impingement signs. Pain and weakness with supraspinatus strength testing. Some discomfort with Speed's and [place]'s. No sign of any biceps tendon instability. Assessment & Plan Assessment & Plan narrative: Patient with right shoulder impingement with a partial rotator cuff tear as well as partial tearing to the proximal biceps. Went over treatment options with the patient today. Patient is interested in surgical intervention which would involve a subacromial decompression rotator cuff debridement versus repair as well as biceps tendon debridement versus tenodesis. All of her questions and concerns were answered to her full satisfaction. The risk, benefits, alternatives, possible complications, operative course, and postop outcomes were discussed. Complications including but not limiting to bleeding, infection, fracture, nerve injury, continued pain postoperatively or instability postoperatively were discussed in detail. Medical complications including but not limited to deep venous thrombosis event, anesthesia complications with excessive bleeding, vascular events or cardiac events and other possible complications were discussed in detail. Need for postoperative rehabilitation and anticipated hospital stay and clinical course were discussed in detail. Patient acknowledges understanding and elects to proceed with surgery. Time Spent With Patient Critical Care time: I spent a total of [] minutes of critical care time on this patient's care today; this time is exclusive of procedural time.
--- NOTE | 2023-02-16 07:34 | PM.PREOP ---
Pre-operative Note Interval Note History & Physical reviewed/Exam performed by Physician: Yes Changes to H&P: No
[2023-02-16] MEDS: CEFAZOLIN 2 GM/100 ML PREMIX 100 ML IV (07:50)
--- NOTE | 2023-02-16 08:25 | SUR.OPER ---
Beach chair with Lawsonn/Clementine shoulder positioner. Lower body on padded OR bed. Head in foam padded head cradle, secured with straps. Non-operative arm secured with pillow underneath across stomach, taped into place. Pillow under knees. Safety belt at thigh. Cloth tape over blanket over lower legs.
[2023-02-16] MEDS: BUPIVACAINE 0.25% (PF) 30 ML, EPINEPHrine 0.15 MG INJ (08:33)
[2023-02-16] MEDS: SODIUM CHLORIDE IRRIG SOLUTION 3,000 ML, EPINEPHrine 1 MG IRR (08:38)
--- NOTE | 2023-02-16 08:55 | P.OP_ITS ---
Operative Date/Time/Diagnoses Date of procedure: 02/16/23 Time of procedure: 07:45 Pre-op diagnosis: Right partial rotator cuff tear Post-op diagnosis: same Procedure & Clinicians Procedure: Right shoulder subacromial decompression with biceps tenotomy and extensive debridement Same procedure as scheduled: Yes Indications: Right shoulder partial rotator cuff tear and partial biceps tear Surgeon: Adair Gill Motor Vehicle Examiner: Roselia Yarbrough Anesthesia Type: General and Peripheral nerve block Operative Notes Findings: Mild partial tearing mainly to the bursal aspect of the rotator cuff. No sign of any high-grade partial tears or full-thickness tears. Almost a full tear involving the proximal biceps with signs extensive degenerative changes throughout the labrum. Thinning of the articular surface to the central aspect of the glenoid as well as the humeral head. But no sign of any full-thickness cartilage loss. Bursitis and synovitis in the subacromial and subdeltoid space. Some signs of AC joint arthritis as well. Closure Type: primary Estimated Blood Loss (mL): 5 Procedure in detail: On date of service, Patient was met in the holding area. The operative site was signed and witnessed by the OR staff. The surgeries once again discussed with the patient and any remaining questions they had were answered fully. Patient was taken back to the operating theater and placed on the operating table in a supine position. Great care was taken to ensure that all bony prominences were properly padded. Patient was then placed into the beach chair position. The head and neck were properly positioned and secured. A timeout was performed verifying patient's name, procedure, and the operative site. The upper extremity was then prepped and draped in the normal sterile fashion. Previously, the bony anatomy and portal sites were marked out as well as injected with Marcaine with epinephrine. An 11 blade was used to make an incision in the posterior aspect of the shoulder. The camera was placed, and a diagnostic shoulder scope was performed. Findings listed above. Next under direct visualization, a anterior portal was made. Shaver was brought in the anterior portal and extensive debridement of the glenohumeral joint was performed. Shaver was used to debride the degenerative changes to the labrum as well as the arthritic changes to the glenoid and humeral head. Shaver was then also used to complete the almost full tear to the proximal biceps and cleaning up the bicipital anchor and superior aspect of the labral tissue. There was mild partial tearing to the articular surface that was also debrided using the shaver. Next the camera was placed into the subacromial space. A lateral portal was obtained under direct visualization. A combination of the shaver and vapor wand, a debridement of the inflamed tissue as well as inflamed bursa was performed. The lateral gutter was also cleaned out. This gave us good visualization of the bursal aspect of the rotator cuff as well as the acromial arch. There was an obvious impingement lesion in the acromial arch. Next we turned our attention to the subacromial decompression. Next, a mechanical rasp was then used to do a subacromial decompression. This allowed us to convert the acromion to a type I acromial. This also allowed us to shave down the bony lesion in the acromial space. The rasp was placed into the lateral portal as well as the anterior portal in order to do a complete subacromial decompression. We then turned our attention to the rotator cuff tear. There was signs of bursal sided partial tearing which was relatively mild. Shaver was used to debride the partial tears to the bursal aspect of the rotator cuff. No sign of any high-grade tears or full-thickness tears. The shoulder was then taken through range of motion and there was no sign of any additional impingement. Next, the suprascapular nerve was blocked. Patient's shoulder was then cleaned dried and dressed and patient was taken to the PACU in stable condition. Complications: none Post-operative Condition: stable Disposition: PACU Plan for aftercare: Sling will be just for comfort. No restrictions to range of motion of the right shoulder. We will limit her lifting to 2-3 lb for the 1st 4-6 weeks.
[2023-02-16 09:01] VITALS: BP 188/63; PULSE 79; RESP 20; TEMP 36.1; O2SAT 88
[2023-02-16 09:06] VITALS: BP 159/57; PULSE 80; RESP 21; O2SAT 94
[2023-02-16 09:11] VITALS: BP 152/58; PULSE 78; RESP 16; O2SAT 94
--- NOTE | 2023-02-16 09:17 | SUR.PHASEI ---
Received to PACU after general anesthesia. Airway patent, self maintained. Report from MARCOS Rodarte and Dr Boykin.
[2023-02-16 09:21] VITALS: BP 156/59; PULSE 76; RESP 92; TEMP 36.3; O2SAT 14
[2023-02-16 09:55] VITALS: BP 157/65; PULSE 78; RESP 16; TEMP 36.4; O2SAT 93
== END 2023-02-16 10:02 | disposition home or self-care (01) ==
PROVIDERS: Family Provider Family Medicine; PCP Family Medicine; Referring Provider Orthopaedic Surgery; Visit Provider Orthopaedic Surgery
PROC: (CPT 29827; principal; 2023-02-16 07:45)
DX: M75.111 Incomplete rotator cuff tear or rupture of right shoulder, not specified as traumatic (principal); M75.41 Impingement syndrome of right shoulder; S46.211A Strain of muscle, fascia and tendon of other parts of biceps, right arm, initial encounter; G89.18 Other acute postprocedural pain; M75.51 Bursitis of right shoulder; M65.811 Other synovitis and tenosynovitis, right shoulder
CPT/HCPCS: 29823; 29826; 64450; J0171; J0690; J1100; J1885; J2250; J2405; J2704; J3010

== ENCOUNTER → 2023-07-13 11:54 | Outpatient (CLI) | payer MEDICARE, OTHER, SELFPAY ==
--- NOTE | 2023-07-13 | DI.MRI.S_ITS ---
PROCEDURE: MR SHOULDER RT WO CON INDICATIONS: STRAIN OF RIGHT SHOULDER TECHNIQUE: Noncontrast oblique coronal T2 fast spin echo with fat saturation, oblique sagittal T1 spin echo and T2 fast spin echo with fat saturation, axial T1 spin echo and T2 fast spin echo with fat saturation through the shoulder. COMPARISON: [facility] [place], CR, XR SHOULDER 2+ VIEWS RIGHT, 05/13/2022, 10:33. [facility], CR, XR SHOULDER 2+ VIEWS RIGHT, 07/04/2023, 15:49. [facility], MR, MR SHOULDER RT WO CON, 12/22/2022, 9:25. FINDINGS: Image quality: There are motion artifacts. Rotator cuff: There is moderate of the supraspinatus, infraspinatus and subscapularis tendons. No high-grade tendon tear or tendon rupture. No tendon retraction or rotator cuff muscle atrophy. Bones and bursae: Nondisplaced fracture of the humeral neck. No acromioclavicular joint degeneration. The acromion demonstrates conventional anatomy, without an os acromiale. No pathologic subacromial-subdeltoid or subcoracoid bursal fluid is present. Capsule and soft tissues: Superior labral tear involving the biceps anchor. There is moderate tendinosis of the long head of the biceps tendon which demonstrates normal location. The rotator interval appears normal, without fibrosis. The coracohumeral ligament is normal in thickness. IMPRESSION: 1. Nondisplaced fracture of the humeral neck. 2. Moderate tendinosis of the supraspinatus, infraspinatus and subscapularis tendons. 3. Moderate tendinosis of the long head of the biceps tendon. 4. Superior labral tear involving the biceps anchor. Dictated by: Rodrigo Cortés M.D. on 07/13/2023 at 14:09 Approved by: Rodrigo Cortés M.D. on 07/13/2023 at 15:17
== END ==
PROVIDERS: Family Provider Family Medicine; PCP Family Medicine; Referring Provider Orthopaedic Surgery; Visit Provider Orthopaedic Surgery
DX: S42.294A Other nondisplaced fracture of upper end of right humerus, initial encounter for closed fracture (principal); S43.491A Other sprain of right shoulder joint, initial encounter; S46.911A Strain of unspecified muscle, fascia and tendon at shoulder and upper arm level, right arm, initial encounter; X58.XXXA Exposure to other specified factors, initial encounter
CPT/HCPCS: 73221

== ENCOUNTER 2023-12-26 13:02 | Emergency (ER) | payer MEDICARE, OTHER, SELFPAY ==
[2023-12-26 13:17] VITALS: BP 162/88; PULSE 74; RESP 16; TEMP 36.6; O2SAT 96; BMI 29.6
--- NOTE | 2023-12-26 13:49 | DI.CT.S_ITS ---
PROCEDURE: CT CERVICAL SPINE WO CON INDICATIONS: fall TECHNIQUE: Noncontrast 3 mm thick sections acquired from the skull base to the T4 level. Sagittal and coronal reformats were then constructed. For radiation dose reduction, the following was used: automated exposure control, adjustment of mA and/or kV according to patient size. COMPARISON: None. FINDINGS: Image quality: Excellent. Bones: No fractures or dislocations. Visualized superior ribs are intact. Soft tissues: Prevertebral soft tissues are normal in thickness. No paravertebral hematomas. No apical pneumothoraces. IMPRESSION: No acute fracture. No osseous lesion. If symptoms and/or clinical suspicion for pathology persist, further assessment with MRI or bone scan may be helpful for further assessment. Dictated by: Camden Norwood M.D. on 12/26/2023 at 14:56 Approved by: Camden Norwood M.D. on 12/26/2023 at 15:01
--- NOTE | 2023-12-26 13:49 | DI.CT.S_ITS ---
PROCEDURE: CT HEAD/BRAIN WO CON INDICATIONS: fall TECHNIQUE: Noncontrast 4.5 mm thick angled axial sections acquired from the foramen magnum to the vertex, with coronal and sagittal reformats. For radiation dose reduction, the following was used: automated exposure control, adjustment of mA and/or kV according to patient size. COMPARISON: None. FINDINGS: Image quality: Diagnostic. CSF spaces: Basal cisterns are patent. No extra-axial fluid collections. The ventricles are symmetric in size and shape. Brain: No intracranial bleeds or masses. There is cerebral volume loss for age, with resultant ventricular and sulcal prominence. There are periventricular and deep white matter chronic small vessel ischemic changes. There is intracranial internal carotid artery atherosclerosis. Skull and face: Calvarium and visualized facial bones appear intact, without suspicious lesions. Sinuses: Visualized sinuses and mastoids are clear. IMPRESSION: No acute intracranial pathology. Dictated by: Camden Norwood M.D. on 12/26/2023 at 14:37 Approved by: Camden Norwood M.D. on 12/26/2023 at 14:37
[2023-12-26 15:35] VITALS: BP 141/64; PULSE 73; RESP 18; O2SAT 98
--- NOTE | 2023-12-26 15:41 | ED.HEATRA ---
HPI - Head Injury <Casper eJrry PA-C - Last Filed: 12/26/23 15:47> General Chief complaint: Head Injury Stated complaint: fell 1wk ago hit head, [place], blacked out,headach Time Seen by Provider: 12/26/23 13:28 Source: patient Mode of arrival: Ambulatory History of Present Illness HPI Narrative: 73-year-old female presents to the ED with headache, nausea, dizziness following a head injury sustained last week. Patient states that she had a mechanical fall last week when she fell off a stool hitting her left temporal area on the corner of a cabinet. Patient states that she might have lost consciousness for about 30 seconds, fall was witnessed by her . She spontaneously regained consciousness. Patient states that since then she has had headache, nausea, intermittent dizziness and lightheadedness. Patient denies fever, chills, chest pain, shortness of breath. Patient is able to ambulate. Related Data Home Medications Medication Instructions Recorded Confirmed aspirin 81 mg tablet,delayed 81 mg PO DAILY 05/23/18 02/16/23 release (Adult Aspirin Regimen) atorvastatin 40 mg tablet 40 mg PO DAILY 05/23/18 02/16/23 losartan 50 mg tablet 50 mg PO DAILY 12/19/18 02/16/23 metformin 500 mg tablet 500 mg PO BID 01/01/19 02/16/23 sennosides 8.6 mg-docusate sodium 1 tab PO BID 01/01/19 02/16/23 50 mg tablet Previous Rx's Medication Instructions Recorded oxybutynin chloride 5 mg 5 mg PO DAILY #90 tabs 10/29/19 tablet,extended release 24 hr benzonatate 100 mg capsule 100 mg PO BID PRN cough #20 caps 02/22/22 hydroxyzine pamoate 25 mg capsule 25 mg PO TID-QID PRN spasms #60 02/16/23 (Vistaril) caps oxycodone-acetaminophen 5 mg-325 2 tab PO Q4-6H PRN pain #60 tabs 02/16/23 mg tablet (Percocet) meclizine 25 mg tablet 25 mg PO TID PRN dizziness #14 tabs 12/26/23 Allergies Allergy/AdvReac Type Severity Reaction Status Date / Time Latex, Natural Rubber Allergy Severe Blister Verified 12/26/23 13:21 [LATEX, NATURAL RUBBER] Penicillins [PENICILLINS] Allergy Intermediate Verified 12/26/23 13:21 metronidazole [METRONIDAZOLE] Allergy Unknown Verified 12/26/23 13:21 pregabalin [From LYRICA] Allergy Unknown Verified 12/26/23 13:21 gabapentin Allergy Verified 12/26/23 13:21 pumpkin seeds Allergy Intermediate Rash Uncoded 12/26/23 13:21 Review of Systems <Casper Jerry PA-C - Last Filed: 12/26/23 15:47> Constitutional Constitutional: Denies chills, Denies fatigue, Denies fever(s), Denies frequent falls, Reports headache(s), Denies lethargy and Denies weakness Eyes Eyes: Denies change in vision, Denies eye discharge, Denies irritation and Denies loss of vision ENT Ears, Nose, Mouth, and Throat: Denies change in voice, Reports dizziness, Reports headache(s), Denies neck pain, Denies sore throat and Denies throat swelling Cardiovascular Cardiovascular: Denies chest pain, Denies irregular heart rhythm, Reports lightheadedness, Denies palpitations, Denies dyspnea, Denies dyspnea on exertion and Denies orthopnea Respiratory Respiratory: Denies cough, Denies dyspnea, Denies dyspnea on exertion and Denies wheezing Gastrointestinal Gastrointestinal: Denies abdominal pain, Denies change in bowel habits, Denies diarrhea, Reports nausea and Denies vomiting Musculoskeletal Musculoskeletal: Denies neck pain and Denies numbness Integumentary/Breasts Skin/Breast: Denies pruritus, Denies erythema, Denies rash and Denies wounds Neurologic Neurologic: Denies behavioral changes, Denies confusion, Reports dizziness, Denies frequent falls, Reports headache(s), Denies loss of vision, Denies numbness and Denies weakness Psychiatric Psychiatric: Denies anxiety, Denies behavioral changes, Denies confusion, Denies depression, Denies homicidal ideation and Denies suicidal ideation Endocrine Endocrine: Denies fatigue, Denies flushing and Denies palpitations Hematologic/Lymphatic Hematologic/Lymphatic: Denies easy bruising Allergic/Immunologic Allergic/Immunologic: Denies urticaria, Denies throat swelling and Denies wheezing Patient History <Casper Jerry PA-C - Last Filed: 12/26/23 15:47> Medical History Overactive bladder GERD (gastroesophageal reflux disease) HTN (hypertension) Hyperlipidemia Diabetes Kidney stone on right side Surgical History Hx of tonsillectomy Hx of tubal ligation Hx of LASIK Status post surgery (12/31/18) History of partial knee replacement History of bladder suspension procedure Status post hysterectomy Hx of cholecystectomy Status post surgery S/P cholecystectomy H/O: hysterectomy Family History Other Family history non-contributory Social History household members: spouse Smoking Status: Never smoker alcohol intake: former Smoking Status: Never smoker alcohol intake frequency: 0-2 drinks per day Substance Use Type: does not use Exam <Casper Jerry PA-C - Last Filed: 12/26/23 15:47> Narrative Exam Narrative: Const General:?cooperative, healthy appearing and comfortable HENNE Head:?normal to inspection; no hematoma, skull depressions Ears:?hearing grossly normal bilaterally Nose:?external nose normal Face and sinus:?normal facial exam and sinuses nontender Mouth:?oral mucosae normal Throat:?posterior oropharynx normal Eyes General:?appearance normal, both eyes and all related structures Neck Neck:?normal visual inspection and no lymphadenopathy noted Resp Effort & Inspection:?normal respiratory effort Auscultation:?clear to auscultation bilaterally Cardio Rate:?regular rate Rhythm:?regular rhythm Neuro General:?patient alert, patient awake and patient oriented x3; PERRLA; CN 1 through 12 intact bilaterally; gait is normal Initial Vital Signs Initial Vital Signs: Vital Signs Temperature 98 F 12/26/23 13:17 Pulse Rate 74 12/26/23 13:17 Respiratory Rate 16 12/26/23 13:17 Blood Pressure 162/88 H 12/26/23 13:17 Pulse Oximetry 96 12/26/23 13:17 Oxygen Delivery Method Room Air 12/26/23 13:17 <Stephanie Rodarte DO - Last Filed: 12/27/23 08:18> Initial Vital Signs Initial Vital Signs: Vital Signs Temperature 98 F 12/26/23 13:17 Pulse Rate 74 12/26/23 13:17 Respiratory Rate 16 12/26/23 13:17 Blood Pressure 162/88 H 12/26/23 13:17 Pulse Oximetry 96 12/26/23 13:17 Oxygen Delivery Method Room Air 12/26/23 13:17 Course <Casper Jerry PA-C - Last Filed: 12/26/23 15:47> Orders Ordered: ED Orders 12/26/23 13:49 CT cervical spine wo con Stat CT head/brain wo con Stat Vital Signs Vital signs: Vital Signs - 8 hr 12/26/23 13:17 12/26/23 15:40 Temperature 98 F Pulse Rate 74 Respiratory Rate 16 18 Blood Pressure 162/88 H 141/64 H Pulse Oximetry 96 98 Oxygen Delivery Method Room Air Room Air <Stephanie Rodarte DO - Last Filed: 12/27/23 08:18> Orders Ordered: ED Orders 12/26/23 13:49 CT cervical spine wo con Stat CT head/brain wo con Stat Vital Signs Vital signs: Vital Signs - 8 hr 12/26/23 13:17 12/26/23 15:40 Temperature 98 F Pulse Rate 74 Respiratory Rate 16 18 Blood Pressure 162/88 H 141/64 H Pulse Oximetry 96 98 Oxygen Delivery Method Room Air Room Air MDM - Head Injury <NIELS Sainz Last Filed: 12/26/23 15:47> MDM Narrative Medical decision making narrative: 73-year-old female presents to the ED with headache, nausea, dizziness following a head injury sustained last week. Obtained CT head, CT C-spine to rule out fracture/dislocation versus intracranial pathology. CT head and CT C-spine without acute findings. In the ED, patient is neurologically intact. Patient's symptoms are most consistent with postconcussion syndrome. Prescribed meclizine for dizziness which could be from peripheral vertigo. Recommend Tylenol, good hydration. Recommend follow-up with PCP as soon as possible. Recommend physical and cognitive rest until symptoms resolve. ED return precautions discussed with patient. Patient verbalized understanding. Medical records reviewed: Yes Discharge Plan Departure Patient Disposition: Home Clinical Impression: Concussion Qualifiers: Encounter type: initial encounter Loss of consciousness presence/duration: unknown LOC status Qualified Code(s): S06.0XAA - Concussion with loss of consciousness status unknown, initial encounter Instructions: Concussion, DI for Closed Head Injury Activity Restrictions/Additional Instructions: You were evaluated in the ED today for a head injury sustained last week. Your CT head and CT neck were normal. It appears that your symptoms are due to a concussion from the head injury from last week. You may take Tylenol for headache. Please continue to drink a lot of water. You may also take meclizine for dizziness as needed. Please follow-up with your PCP as soon as possible for further evaluation. Return to the ED if you have worsening symptoms, persistent vomiting. Prescriptions: New meclizine 25 mg tablet 25 mg PO TID PRN (Reason: dizziness) Qty: 14 0RF No Action losartan 50 mg tablet 50 mg PO DAILY benzonatate 100 mg capsule 100 mg PO BID PRN (Reason: cough) Qty: 20 0RF oxybutynin chloride 5 mg tablet extended release 24hr 5 mg PO DAILY Qty: 90 1RF aspirin [Adult Aspirin Regimen] 81 mg tablet,delayed release (DR/EC) 81 mg PO DAILY atorvastatin 40 mg tablet 40 mg PO DAILY metformin 500 mg tablet 500 mg PO BID Rx Instructions: 1000mg am, 500mg pm sennosides-docusate sodium 8.6-50 mg tablet 1 tab PO BID Patient Comments: TK 1 T PO BID oxycodone-acetaminophen [Percocet] 5-325 mg tablet 2 tab PO Q4-6H PRN (Reason: pain) Qty: 60 0RF hydroxyzine pamoate [Vistaril] 25 mg capsule 25 mg PO TID-QID PRN (Reason: spasms) Qty: 60 0RF Referrals: Cleveland Otto MD [Primary Care Provider] - Stand Alone Forms: Patient Portal/API ED Sign-out <Stephanie Rodarte DO - Last Filed: 12/27/23 08:18> Cosign ED Attending Seb Attestation: I was immediately available in the department for consultation.
== END 2023-12-26 15:43 | disposition home or self-care (01) ==
PROVIDERS: Emergency Provider Student in an Organized Health Care Education/Training Program; Family Provider Family Medicine; PCP Family Medicine
DX: S06.0XAA Concussion with loss of consciousness status unknown, initial encounter (principal); W18.09XA Striking against other object with subsequent fall, initial encounter; Z79.899 Other long term (current) drug therapy
CPT/HCPCS: 70450; 72125; 99283; 99284

== ENCOUNTER 2025-09-04 18:06 | Emergency (ER) | payer MEDICARE, OTHER, SELFPAY ==
[2025-09-04] VITALS (16 sets, daily range): BP systolic 131–208; BP diastolic 61–102; PULSE 70–81; RESP 14–34; TEMP 36.8; O2SAT 95–98; BMI 31.2
--- NOTE | 2025-09-04 18:41 | EKG_ITS ---
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
--- NOTE | 2025-09-04 18:41 | DI.RAD.S_ITS ---
PROCEDURE: XR CHEST 1V INDICATIONS: Chest Pain TECHNIQUE: One view of the chest was acquired. COMPARISON: [facility], CR, XR CHEST 2V, 02/22/2022, 12:03. FINDINGS: Surgical changes and devices: None. Lungs and pleura: Lungs are clear. No pleural effusions or pneumothorax. Mediastinum: Mediastinal contours appear normal. Heart size is normal. Bones and chest wall: No suspicious bony lesions. Overlying soft tissues appear unremarkable. IMPRESSION: No acute cardiopulmonary abnormalities or focal consolidation. Dictated by: Keo Kern M.D. on 09/04/2025 at 19:25 Approved by: Keo Kern M.D. on 09/04/2025 at 19:25
[2025-09-04 19:01] LABS: Add Manual Diff / Slide Review NO; Hematocrit 36.1 % (36-46); Hemoglobin 12.6 g/dL (12.0-16.0); Lymphocytes Absolute Auto 2600 /uL (1100-4500); Mean Corpuscular HGB Conc 35.0 % (30-36); Mean Corpuscular Hemoglobin 29.7 PG (26-34); Mean Corpuscular Volume 85.1 fL (80-100); Platelet Count 349 X10^3/uL (150-400)
[2025-09-04 19:06] LABS: INR 1.0 (0.9-1.3); Prothrombin Time 10.9 SECONDS (9.4-12.5)
[2025-09-04 19:08] LABS: PTT Partial Thromboplastin Tim 27 SECONDS (25.1-36.5)
[2025-09-04 19:14] LABS: Appearance Urine UA CLEAR; Bilirubin Urine UA NEGATIVE (NEGATIVE); Color Urine UA YELLOW; Glucose Urine UA NEGATIVE (Negative); Ketones Urine UA NEGATIVE (NEGATIVE); Leukocyte Esterase Urine UA 1+ (NEGATIVE); Nitrite Urine UA NEGATIVE (Negative); Occult Blood Urine UA NEGATIVE (Negative); Protein Urine UA NEGATIVE (Negative); Specific Gravity Urine UA 1.010 (1.000-1.035); Urobilinogen Urine UA 1.0 E.U./dL (0.2)
[2025-09-04 19:16] LABS: Alanine Aminotransferase 19 IU/L (<35); Albumin 4.3 g/dL (3.5-5.0); Albumin Globulin Ratio 1.5 (1.0-2.8); Alkaline Phosphatase 82 U/L (38-126); Blood Urea Nitrogen 14 mg/dL (7-17); Calcium 9.0 mg/dL (8.4-10.2); Carbon Dioxide 28 mmol/L (22-32); Chloride 102 mmol/L (98-107); Creatine Kinase 100 U/L (30-135); Estimated Glomerular Filt Rate > 60 mL/min (>60); Globulin 2.8 g/dL (1.7-4.1); Glucose 151 mg/dL (70-99); HEMOLYSIS < 15 (0-50); Lipase 147 U/L (23-300); Magnesium 1.5 mg/dL (1.6-2.3); Potassium 3.3 mmol/L (3.4-5.1); Sodium 138 mmol/L (137-145); Total Protein 7.1 g/dL (6.3-8.2)
[2025-09-04 19:18] LABS: pH Urine UA 8.0 (4.5-8.0)
[2025-09-04 19:27] LABS: NT-proBNP (BNP-Adult 18+) 156 pg/mL (<450); Troponin I < 0.012 ng/mL (0.01-0.034)
[2025-09-04 19:35] LABS: Culture Indicated Urine Specimen Cultured
--- NOTE | 2025-09-04 20:21 | ED_ITS ---
HPI - Chest Pain <Edil Sidhu MD - Last Filed: 09/05/25 14:02> General Chief Complaint: Chest Pain Stated Complaint: lumps on arms, abd pain, blood in urine Time Seen by Provider: 09/04/25 18:56 Source: patient Mode of arrival: Ambulatory Limitations: no limitations History of Present Illness HPI narrative: 75-year-old female with history of known coronary artery disease, status post single coronary vessel stenting July 12, 2025 at [facility], taking aspirin and Plavix blood thinners, intermittent chest discomfort through the day today, more constant at 3:30 p.m., resolved without specific treatment during triage. No associated nausea or diaphoresis. No recent cough fevers chills. No history of blood clots to legs or lungs, no leg pain or swelling symptoms. Related Data Home Medications ?Medication ?Instructions ?Recorded ?Confirmed aspirin 81 mg tablet,delayed 81 mg PO DAILY 05/23/18 0 02/16/23 release (Adult Aspirin Regimen) atorvastatin 40 mg tablet 40 mg PO DAILY 05/23/1801/26 losartan 50 mg tablet 50 mg PO DAILY 12/19/1801/26 metformin 500 mg tablet 500 mg PO BID 01/01/1902/16 sennosides 8.6 mg-docusate sodium 1 tab PO BID 9 02/16/23 50 mg tablet Previous Rx's ?Medication ?Instructions ?Recorded oxybutynin chloride 5 mg 5 mg PO DAILY #90 tabs 10/29 tablet,extended release 24 hr benzonatate 100 mg capsule 100 mg PO BID PRN cough #20 caps 02/22/22 hydroxyzine pamoate 25 mg capsule 25 mg PO TID-QID PRN spasms #60 02/16/23 (Vistaril) caps oxycodone-acetaminophen 5 mg-325 2 tab PO Q4-6H PRN pa in #60 tabs 02/16/23 mg tablet (Percocet) meclizine 25 mg tablet 25 mg PO TID PRN dizziness # 14 tabs 12/26/23 Allergies Allergy/AdvReac Type Severity Reaction Status Date / Time Latex, Natural Rubber Allergy Severe Blister Verified 12/26/23 13:21 (LATEX, NATURAL RUBBER) Penicillins (PENICILLINS) Allergy Intermediate Verified 12/26/23 13:21 metronidazole (METRONIDAZOLE) Allergy Unknown Verified 12/26/23 13:21 pregabalin (From LYRICA) Allergy Unknown Verified 12/26/23 13:21 gabapentin Allergy Verified 12/26/23 13:21 pumpkin seeds Allergy Intermediate Rash Uncoded 12/26/23 13:21 Patient History <Edil Sidhu MD - Last Filed: 09/05/25 14:02> Medical History Overactive bladder GERD (gastroesophageal reflux disease) HTN (hypertension) Hyperlipidemia Diabetes Kidney stone on right side Surgical History Hx of tonsillectomy Hx of tubal ligation Hx of LASIK Status post surgery (12/31/18) History of partial knee replacement History of bladder suspension procedure Status post hysterectomy Hx of cholecystectomy Status post surgery S/P cholecystectomy H/O: hysterectomy Family History Other Family history non-contributory Social History household members: spouse alcohol intake: former alcohol intake frequency: 0-2 drinks per day Alcohol type: other Exam <Edil Sidhu MD - Last Filed: 09/05/25 14:02> Narrative Exam Narrative: GENERAL: Well-developed patient, in mild distress. HEAD: Atraumatic. Normocephalic. EYES: Pupils equal round and reactive. Extraocular motions intact. No scleral icterus. No injection or drainage. ENT: Nose without bleeding, purulent drainage. Throat without erythema, tonsillar hypertrophy or exudate. Airway patent. NECK: Trachea midline. Non tender CARDIOVASCULAR: Regular rate and rhythm without murmurs, gallops, or rubs. RESPIRATORY: Clear to auscultation. Breath sounds equal bilaterally. No wheezes, rales, or rhonchi. No chest wall tenderness. GASTROINTESTINAL: Abdomen soft, non-tender, nondistended. EXTREMITIES: No edema or joint tenderness. BACK: Nontender without deformity or crepitance. No flank tenderness. NEURO: AOx3. Motor functions grossly nonfocal. SKIN: No rash or erythema of visible areas Initial Vital Signs Initial Vital Signs: Vital Signs Temperature 98.3 F 09/04/25 18:30 Pulse Rate 81 09/04/25 18:30 Respiratory Rate 14 09/04/25 18:30 Blood Pressure 186/81 H 09/04/25 18:30 Pulse Oximetry 97 09/04/25 18:30 Oxygen Delivery Method Room Air 09/04/25 18:30 <Alin Tirado MD - Last Filed: 09/05/25 15:16> Initial Vital Signs Initial Vital Signs: Vital Signs Temperature 98.3 F 09/04/25 18:30 Pulse Rate 81 09/04/25 18:30 Respiratory Rate 14 09/04/25 18:30 Blood Pressure 186/81 H 09/04/25 18:30 Pulse Oximetry 97 09/04/25 18:30 Oxygen Delivery Method Room Air 09/04/25 18:30 Scores <Edil Sidhu MD - Last Filed: 09/05/25 14:02> HEART Score Heart Score history: Slightly Suspicious Heart Score EKG: Normal Heart Score Age: > or = 65 years old Heart Score risk factors: > 3 risk factors or hx of atherosclerotic disease Heart Score troponin: < or = to normal limit Heart Score Total: 4 <Alin Tirado MD - Last Filed: 09/05/25 15:16> HEART Score Heart Score Total: 4 Course <Edil Sidhu MD - Last Filed: 09/05/25 14:02> Orders Ordered: Aspirin (Aspirin Ec 81 Mg Tablet) 81 mg PO DAILY [facility] Last Admin: 09/05/25 08:24 Dose: 81 mg Documented By: RIDDHI Atorvastatin Calcium (Atorvastatin 20 Mg Tablet) 40 mg PO DAILY [facility] Last Admin: 09/05/25 08:25 Dose: 40 mg Documented By: RIDDHI Losartan Potassium (Losartan 50 Mg Tablet) 50 mg PO DAILY [facility] Last Admin: 09/05/25 08:25 Dose: 50 mg Documented By: RIDDIH Metformin HCl (Metformin 500 Mg Tablet) 500 mg PO 0800,1700 [facility] Last Admin: 09/05/25 08:25 Dose: 500 mg Documented By: RIDDHI Discontinued Medications Aspirin (Aspirin 81 Mg Chew Tab) 324 mg PO NOW ONE Stop: 09/04/25 18:42 Last Admin: 09/04/25 23:05 Dose: 324 mg Documented By: MARY KAY Aspirin (Aspirin 81 Mg Chew Tab) 324 mg PO NOW ONE Stop: 09/04/25 23:03 Last Admin: 09/04/25 23:21 Dose: Not Given Documented By: MARY KAY Magnesium Sulfate (Magnesium Sulfate) 2 gm in 50 mls @ 150 mls/hr IV NOW ONE Stop: 09/04/25 21:03 Last Infusion: 09/04/25 21:26 Dose: Infused Documented By: MARY KAY Co-signed By: Admin: 09/04/25 21:00 Dose: 150 mls/hr Documented By: MARY KAY Co-signed By: Potassium Chloride (Potassium Chloride 20 Meq/15 Ml Udc) 40 meq PO NOW ONE Stop: 09/04/25 20:45 Last Admin: 09/04/25 21:00 Dose: 40 meq Documented By: MARY KAY Vital Signs Vital signs: Vital Signs - 8 hr 09/05/25 07:30 09/05/25 08:00 09/05/25 08:25 Pulse Rate 80 89 82 Respiratory Rate 20 22 Blood Pressure 168/69 H Pulse Oximetry 96 96 Oxygen Delivery Method 09/05/25 08:25 09/05/25 08:26 09/05/25 08:26 Pulse Rate 83 80 Respiratory Rate 21 20 Blood Pressure 182/85 H Pulse Oximetry 99 99 Oxygen Delivery Method 09/05/25 08:30 09/05/25 08:30 09/05/25 09:00 Pulse Rate 80 77 Respiratory Rate 22 23 Blood Pressure 169/77 H Pulse Oximetry 97 96 Oxygen Delivery Method 09/05/25 09:00 09/05/25 09:30 09/05/25 09:30 Pulse Rate 78 Respiratory Rate 20 Blood Pressure 159/70 H 165/70 H Pulse Oximetry 95 Oxygen Delivery Method 09/05/25 10:00 09/05/25 10:00 09/05/25 10:30 Pulse Rate 73 Respiratory Rate 19 Blood Pressure 167/72 H 159/68 H Pulse Oximetry 96 Oxygen Delivery Method 09/05/25 10:30 09/05/25 11:00 09/05/25 11:00 Pulse Rate 70 77 Respiratory Rate 17 19 Blood Pressure 157/71 H Pulse Oximetry 96 95 Oxygen Delivery Method 09/05/25 11:58 09/05/25 12:00 09/05/25 12:30 Pulse Rate 83 94 H 79 Respiratory Rate 18 18 Blood Pressure Pulse Oximetry 96 97 95 Oxygen Delivery Method Room Air 09/05/25 13:00 09/05/25 13:00 09/05/25 13:30 Pulse Rate 70 69 Respiratory Rate 20 17 Blood Pressure 154/68 H Pulse Oximetry 95 94 Oxygen Delivery Method 09/05/25 14:00 09/05/25 14:00 09/05/25 14:30 Pulse Rate 82 87 Respiratory Rate 23 Blood Pressure 141/66 H Pulse Oximetry 95 97 Oxygen Delivery Method Room Air 09/05/25 15:03 09/05/25 15:03 Pulse Rate 87 Respiratory Rate Blood Pressure 156/87 H Pulse Oximetry 94 Oxygen Delivery Method Room Air <Alin Tirado MD - Last Filed: 09/05/25 15:16> Orders Ordered: Aspirin (Aspirin Ec 81 Mg Tablet) 81 mg PO DAILY [facility] Last Admin: 09/05/25 08:24 Dose: 81 mg Documented By: RIDDHI Atorvastatin Calcium (Atorvastatin 20 Mg Tablet) 40 mg PO DAILY [facility] Last Admin: 09/05/25 08:25 Dose: 40 mg Documented By: RIDDHI Losartan Potassium (Losartan 50 Mg Tablet) 50 mg PO DAILY [facility] Last Admin: 09/05/25 08:25 Dose: 50 mg Documented By: RIDDHI Metformin HCl (Metformin 500 Mg Tablet) 500 mg PO 0800,1700 [facility] Last Admin: 09/05/25 08:25 Dose: 500 mg Documented By: RIDDHI Discontinued Medications Aspirin (Aspirin 81 Mg Chew Tab) 324 mg PO NOW ONE Stop: 09/04/25 18:42 Last Admin: 09/04/25 23:05 Dose: 324 mg Documented By: MARY KAY Aspirin (Aspirin 81 Mg Chew Tab) 324 mg PO NOW ONE Stop: 09/04/25 23:03 Last Admin: 09/04/25 23:21 Dose: Not Given Documented By: MARY KAY Magnesium Sulfate (Magnesium Sulfate) 2 gm in 50 mls @ 150 mls/hr IV NOW ONE Stop: 09/04/25 21:03 Last Infusion: 09/04/25 21:26 Dose: Infused Documented By: MARY KAY Co-signed By: Admin: 09/04/25 21:00 Dose: 150 mls/hr Documented By: MARY KAY Co-signed By: Potassium Chloride (Potassium Chloride 20 Meq/15 Ml Udc) 40 meq PO NOW ONE Stop: 09/04/25 20:45 Last Admin: 09/04/25 21:00 Dose: 40 meq Documented By: MARY KAY Reevaluation(s) Reevaluation #1: Care was assumed at 7:00 a.m. shift change. This lady was seen overnight with chest pain and has a known history of coronary disease recent care in [place]. No chest pain since her arrival here. No shortness of breath, vital signs are reviewed patient is feeling well heart and lungs are normal on exam. Exam at 8:00 a.m.. Awaiting transfer to [place]. I have ordered her daily meds. Consultations Consultation #1: Discussed with Dr. Owens, hospitalist at [facility] who accepts the transfer at 1:20 p.m. September 05 Vital Signs Vital signs: Vital Signs - 8 hr 09/05/25 07:30 09/05/25 08:00 09/05/25 08:25 Pulse Rate 80 89 82 Respiratory Rate 20 22 Blood Pressure 168/69 H Pulse Oximetry 96 96 Oxygen Delivery Method 09/05/25 08:25 09/05/25 08:26 09/05/25 08:26 Pulse Rate 83 80 Respiratory Rate 21 20 Blood Pressure 182/85 H Pulse Oximetry 99 99 Oxygen Delivery Method 09/05/25 08:30 09/05/25 08:30 09/05/25 09:00 Pulse Rate 80 77 Respiratory Rate 22 23 Blood Pressure 169/77 H Pulse Oximetry 97 96 Oxygen Delivery Method 09/05/25 09:00 09/05/25 09:30 09/05/25 09:30 Pulse Rate 78 Respiratory Rate 20 Blood Pressure 159/70 H 165/70 H Pulse Oximetry 95 Oxygen Delivery Method 09/05/25 10:00 09/05/25 10:00 09/05/25 10:30 Pulse Rate 73 Respiratory Rate 19 Blood Pressure 167/72 H 159/68 H Pulse Oximetry 96 Oxygen Delivery Method 09/05/25 10:30 09/05/25 11:00 09/05/25 11:00 Pulse Rate 70 77 Respiratory Rate 17 19 Blood Pressure 157/71 H Pulse Oximetry 96 95 Oxygen Delivery Method 09/05/25 11:58 09/05/25 12:00 09/05/25 12:30 Pulse Rate 83 94 H 79 Respiratory Rate 18 18 Blood Pressure Pulse Oximetry 96 97 95 Oxygen Delivery Method Room Air 09/05/25 13:00 09/05/25 13:00 09/05/25 13:30 Pulse Rate 70 69 Respiratory Rate 20 17 Blood Pressure 154/68 H Pulse Oximetry 95 94 Oxygen Delivery Method 09/05/25 14:00 09/05/25 14:00 09/05/25 14:30 Pulse Rate 82 87 Respiratory Rate 23 Blood Pressure 141/66 H Pulse Oximetry 95 97 Oxygen Delivery Method Room Air 09/05/25 15:03 09/05/25 15:03 Pulse Rate 87 Respiratory Rate Blood Pressure 156/87 H Pulse Oximetry 94 Oxygen Delivery Method Room Air MDM - Chest Pain <Edil Sidhu MD - Last Filed: 09/05/25 14:02> Lab Data Attestation: I reviewed the patient's lab results. Lab results narrative: White blood cell count 9300, hemoglobin 12.6, platelets adequate. Glucose 151. Normal renal function serum CO2 and sodium. Potassium 3.3 mildly low. Magnesium 1.5 mildly low. Liver functions and lipase normal. BNP not elevated. Troponin negative/unmeasurable. 09/04/25 18:45 09/04/25 18:45 Labs: Lab Results 09/04/25 09/04/25 Range/Units 18:45 21:33 WBC 9.3 (4.5-11.0) X10^3/uL RBC 4.25 (4.0-5.2) X10^6/uL Hgb 12.6 (12.0-16.0) g/dL Hct 36.1 (36-46) % MCV 85.1 (80-100) fL MCH 29.7 (26-34) PG MCHC 35.0 (30-36) % RDW 13.9 (11.6-14.8) % Plt Count 349 (150-400) X10^3/uL Neut % (Auto) 60.4 (50-75) % Lymph % (Auto) 28.4 (25-40) % [place] % (Auto) 7.3 (3-14) % Eos % (Auto) 3.2 (2-4) % Baso % (Auto) 0.7 (0-2) % Neut # (Auto) 5600 (5260-8071) /uL Lymph # (Auto) 2600 (0318-9379) /uL [place] # (Auto) 700 (0-900) /uL Eos # (Auto) 300 (0-450) /uL Baso # (Auto) 100 (0-100) /uL PT 10.9 (9.4-12.5) SECONDS INR 1.0 (0.9-1.3) APTT 27 (25.1-36.5) SECONDS Sodium 138 (137-145) mmol/L Potassium 3.3 L (3.4-5.1) mmol/L Chloride 102 (98-107) mmol/L Carbon Dioxide 28 (22-32) mmol/L BUN 14 (7-17) mg/dL Creatinine 0.69 (0.52-1.04) mg/dL Estimated GFR > 60 (>60) mL/min BUN/Creatinine Ratio 20.3 (6-22) Glucose 151 H (70-99) mg/dL Calcium 9.0 (8.4-10.2) mg/dL Magnesium 1.5 L (1.6-2.3) mg/dL Total Bilirubin 0.2 (0.2-1.3) mg/dL AST 25 (14-36) IU/L ALT 19 (<35) IU/L Alkaline Phosphatase 82 (38-126) U/L Total Creatine Kinase 100 (30-135) U/L Troponin I < 0.012 < 0.012 (0.01-0.034) ng/mL NT-Pro-B Natriuret Pep 156 (<450) pg/mL Total Protein 7.1 (6.3-8.2) g/dL Albumin 4.3 (3.5-5.0) g/dL Globulin 2.8 (1.7-4.1) g/dL Albumin/Globulin Ratio 1.5 (1.0-2.8) Lipase 147 (23-300) U/L Urine Color Yellow Urine Appearance Clear Urine pH 8.0 (4.5-8.0) Ur Specific [place] 1.010 (1.000-1.035) Urine Protein Negative (Negative) Urine Glucose (UA) Negative (Negative) g/dL Urine Ketones Negative (NEGATIVE) Urine Occult Blood Negative (Negative) Urine Nitrate Negative (Negative) Urine Bilirubin Negative (NEGATIVE) Urine Urobilinogen 1.0 (0.2) E.U./dL Ur Leukocyte Esterase 1+ H (NEGATIVE) Urine RBC None seen (0-5/HPF) Urine WBC 1-5/hpf (0-5/HPF) Ur Squamous Epith Cells 1-5 /hpf (0-5/HPF) Urine Bacteria Few (2-10) H (None) Ur Culture Indicated? Specimen cultured Vol Urine Centrifuged 3 Imaging Data Chest x-ray: Radiologist's Impression: gabalin, gabapentin, [pumpkin seeds] [address] [address] XRay Report Signed Patient: Jocy Obregon MR#: [id number] : 1950 Acct:[id number] Age/Sex: 75 / F Date of Service: 09/04/25 Loc: ED Accession Number: [id number] Procedure: XR chest 1V Ordering Provider: Jessee Richards D.O. PROCEDURE: XR CHEST 1V INDICATIONS: Chest Pain TECHNIQUE: One view of the chest was acquired. COMPARISON: [facility], , XR CHEST 2V, 02/22/2022, 12:03. FINDINGS: Surgical changes and devices: None. Lungs and pleura: Lungs are clear. No pleural effusions or pneumothorax. Mediastinum: Mediastinal contours appear normal. Heart size is normal. Bones and chest wall: No suspicious bony lesions. Overlying soft tissues appear unremarkable. IMPRESSION: No acute cardiopulmonary abnormalities or focal consolidation. Dictated by: Keo Kern M.D. on 09/04/2025 at 19:25 Approved by: Keo Kern M.D. on 09/04/2025 at 19:25 ECG Data Attestation: I personally reviewed and interpreted this ECG as follows: Interpretation: 1832, normal sinus rhythm with rate of 72, no obvious ST segment elevation or depression changes. DE 140, QRS 94, QTC 409. [facility] Narrative Medical decision making narrative: 75-year-old female with history of known CAD, had single coronary stent placed [place] mid June 2025, 3:30 p.m. today with left anterior chest discomfort, resolved during triage without specific treatment. Afebrile, sirs screen negative. No chest wall tenderness on examination, no respiratory distress, lungs clear. Screening EKG without obvious ischemic changes. Chest x-ray and labs pending. Heart score 4. Oral aspirin. EKG sinus rhythm without obvious ischemic changes. Chest x-ray showed no acute changes. See radiology report. Lab data: White blood cell count 9300, hemoglobin 12.6, platelets adequate. Glucose 151. Normal renal function serum CO2 and sodium. Potassium 3.3 mildly low. Magnesium 1.5 mildly low. Liver functions and lipase normal. BNP not elevated. Troponin negative/unmeasurable. Initial troponin also negative/unmeasurable. We will contact on-call Cardiology at [facility] where patient had previous coronary stenting June 2025, for disposition plan. 2300, case discussed with cardiology Dr. Rowan [facility], unprovoked chest pain, recent stenting, unstable angina, would recommend transfer for further evaluation at their facility, can hold off on heparin for now if no recurrence of symptoms. 0100, no beds available, patient remains pain-free, transfer to [facility] when bed available in the morning, could pursue alternate facilities would patient is stable and has had recent coronary stenting at [facility], transfer there for continuity of care. Patient agreeable. 0700, awaiting bed availability [facility]. [facility] Dr Tirado. <Alin Tirado MD - Last Filed: 09/05/25 15:16> Lab Data Labs: Lab Results 09/04/25 09/04/25 Range/Units 18:45 21:33 WBC 9.3 (4.5-11.0) X10^3/uL RBC 4.25 (4.0-5.2) X10^6/uL Hgb 12.6 (12.0-16.0) g/dL Hct 36.1 (36-46) % MCV 85.1 (80-100) fL MCH 29.7 (26-34) PG MCHC 35.0 (30-36) % RDW 13.9 (11.6-14.8) % Plt Count 349 (150-400) X10^3/uL Neut % (Auto) 60.4 (50-75) % Lymph % (Auto) 28.4 (25-40) % [place] % (Auto) 7.3 (3-14) % Eos % (Auto) 3.2 (2-4) % Baso % (Auto) 0.7 (0-2) % Neut # (Auto) 5600 (5030-7748) /uL Lymph # (Auto) 2600 (4443-8308) /uL [place] # (Auto) 700 (0-900) /uL Eos # (Auto) 300 (0-450) /uL Baso # (Auto) 100 (0-100) /uL PT 10.9 (9.4-12.5) SECONDS INR 1.0 (0.9-1.3) APTT 27 (25.1-36.5) SECONDS Sodium 138 (137-145) mmol/L Potassium 3.3 L (3.4-5.1) mmol/L Chloride 102 (98-107) mmol/L Carbon Dioxide 28 (22-32) mmol/L BUN 14 (7-17) mg/dL Creatinine 0.69 (0.52-1.04) mg/dL Estimated GFR > 60 (>60) mL/min BUN/Creatinine Ratio 20.3 (6-22) Glucose 151 H (70-99) mg/dL Calcium 9.0 (8.4-10.2) mg/dL Magnesium 1.5 L (1.6-2.3) mg/dL Total Bilirubin 0.2 (0.2-1.3) mg/dL AST 25 (14-36) IU/L ALT 19 (<35) IU/L Alkaline Phosphatase 82 (38-126) U/L Total Creatine Kinase 100 (30-135) U/L Troponin I < 0.012 < 0.012 (0.01-0.034) ng/mL NT-Pro-B Natriuret Pep 156 (<450) pg/mL Total Protein 7.1 (6.3-8.2) g/dL Albumin 4.3 (3.5-5.0) g/dL Globulin 2.8 (1.7-4.1) g/dL Albumin/Globulin Ratio 1.5 (1.0-2.8) Lipase 147 (23-300) U/L Urine Color Yellow Urine Appearance Clear Urine pH 8.0 (4.5-8.0) Ur Specific [place] 1.010 (1.000-1.035) Urine Protein Negative (Negative) Urine Glucose (UA) Negative (Negative) g/dL Urine Ketones Negative (NEGATIVE) Urine Occult Blood Negative (Negative) Urine Nitrate Negative (Negative) Urine Bilirubin Negative (NEGATIVE) Urine Urobilinogen 1.0 (0.2) E.U./dL Ur Leukocyte Esterase 1+ H (NEGATIVE) Urine RBC None seen (0-5/HPF) Urine WBC 1-5/hpf (0-5/HPF) Ur Squamous Epith Cells 1-5 /hpf (0-5/HPF) Urine Bacteria Few (2-10) H (None) Ur Culture Indicated? Specimen cultured Vol Urine Centrifuged 3 Imaging Data Chest x-ray: My Impression: Independently reviewed, no acute finding Discharge Plan Departure Patient Disposition: [facility] Clinical Impression: Chest pain, Hypokalemia, Unstable angina Prescriptions: No Action losartan 50 mg tablet 50 mg PO DAILY benzonatate 100 mg capsule 100 mg PO BID PRN (Reason: cough) Qty: 20 0RF oxybutynin chloride 5 mg tablet extended release 24hr 5 mg PO DAILY Qty: 90 1RF aspirin [Adult Aspirin Regimen] 81 mg tablet,delayed release (DR/EC) 81 mg PO DAILY atorvastatin 40 mg tablet 40 mg PO DAILY metformin 500 mg tablet 500 mg PO BID Rx Instructions: 1000mg am, 500mg pm sennosides-docusate sodium 8.6-50 mg tablet 1 tab PO BID Patient Comments: TK 1 T PO BID meclizine 25 mg tablet 25 mg PO TID PRN (Reason: dizziness) Qty: 14 0RF oxycodone-acetaminophen [Percocet] 5-325 mg tablet 2 tab PO Q4-6H PRN (Reason: pain) Qty: 60 0RF hydroxyzine pamoate [Vistaril] 25 mg capsule 25 mg PO TID-QID PRN (Reason: spasms) Qty: 60 0RF Referrals: Cleveland Otto MD [Primary Care Provider, Family Practice]
[2025-09-04] MEDS: MAGNESIUM SULFATE 2 GM/50 ML PIGGYBACK IV (21:00)
[2025-09-04] MEDS: POTASSIUM CHLORIDE 20 MEQ/15 ML UDC 40 MEQ PO (21:00)
[2025-09-04 22:12] LABS: Troponin I < 0.012 ng/mL (0.01-0.034)
[2025-09-04] MEDS: ASPIRIN 81 MG CHEW TAB 324 MG PO (23:05)
[2025-09-05] VITALS (40 sets, daily range): BP systolic 132–202; BP diastolic 61–87; PULSE 69–94; RESP 16–28; O2SAT 93–99
--- NOTE | 2025-09-05 02:53 | PC.NURSE ---
No changes in patient status. [place]
[2025-09-05] MEDS: ASPIRIN EC 81 MG TABLET PO (08:24)
[2025-09-05] MEDS: ATORVASTATIN 20 MG TABLET 40 MG PO (08:25)
[2025-09-05] MEDS: LOSARTAN 50 MG TABLET PO (08:25)
== END 2025-09-05 15:28 | disposition short-term general hospital (02) ==
PROVIDERS: Emergency Medicine; Orthopaedic Surgery; Emergency Provider Emergency Medicine; Family Provider Family Medicine; PCP Family Medicine
DX: I20.0 Unstable angina (principal); E87.6 Hypokalemia; R07.9 Chest pain, unspecified; Z86.79 Personal history of other diseases of the circulatory system
CPT/HCPCS: 36415; 71045; 80053; 81001; 82550; 83690; 83735; 83880; 84484; 85025; 85610; 85730; 87086; 93005; 96365; 99284; J3475